=== PATIENT | female | born 1960 | race African-American/Black ===

== ENCOUNTER 2020-06-27 01:24 | Inpatient (IN) | payer OTHER ==
[2020-06-27] MEDS ORDERED: ACETAMINOPHEN 1000 MG/100 ML VIAL (NON FORMULARY) IVPB ONE (02:00)
[2020-06-27] MEDS ORDERED: ACETAMINOPHEN INJECTION 100 ML IVPB ONE (02:27)
[2020-06-27 03:02] LABS: BASO % 0.3 % (0-2.0); EOS % 0.1 % (0-4.5); HEMATOCRIT 46.7 % (32.4-45.2); HEMOGLOBIN 15.9 GM/dL (10.7-15.3); LYMPH % 22.9 % (8-40); MCH 27.9 pg (25.7-33.7); MCHC 34.1 g/dl (32.0-36.0); MEAN CELL VOLUME 81.8 fl (80-96); MEAN PLT VOLUME 9.2 fl (7.5-11.1); MONO % 6.3 % (3.8-10.2); NEUT % 70.4 % (42.8-82.8); PLATELET COUNT 210 K/MM3 (134-434); RBC 5.72 M/mm3 (3.60-5.2); RDW 15.5 % (11.6-15.6); WHITE BLOOD COUNT 14.7 K/mm3 (4.0-10.0)
[2020-06-27 03:11] LABS: INR 1.01 (0.83-1.09); PROTHROMBIN TIME (PATIENT) 11.9 SEC (9.7-13.0)
[2020-06-27] MEDS ORDERED: morphine CARPU-JECT 4 MG/1 ML DISP.SYRIN IVPUSH ONE (03:21)
[2020-06-27] MEDS ORDERED: SODIUM CHLORIDE 0.9% 500 ML INFUS.BAG IV ONE (03:24)
[2020-06-27 03:25] LABS: ALBUMIN 3.8 g/dl (3.4-5.0); CALCIUM 9.9 mg/dL (8.5-10.1); TOT PROT 8.3 g/dl (6.4-8.2)
--- NOTE | 2020-06-27 03:25 | PDOC ---
History of Present Illness - General History Source: Patient, Other (Cousin present at bedside.) Exam Limitations: No Limitations - History of Present Illness Initial Comments: 59 y/o female presenting to [facility] ER complaining of abdominal bloating and RLQ pain. Sometimes migratory to the LLQ. Progressively worsened over the past two to three months. Worse after eating or drinking. Reports occasional episodes of nonbloody and nonbilious vomiting. Last BM earlier this evening. Endorses long history of constipation requiring enemas. Denies recent diarrhea, change in stool color, or bloody bowel movements. Denies fevers, chills, chest pain, SOB, dysuira, hematuria, or vaginal discharge. Sick Contacts: No Recent Travel: No <Dajuan Marquez - Last Filed: 06/27/20 05:22> <Kayli Ziegler - Last Filed: 06/28/20 06:42> - General Chief Complaint: Pain, Acute Stated Complaint: ABD PAIN Time Seen by Provider: 06/27/20 03:09 Attending Attestation - Resident Resident Name: Dajuan Marquez - ED Attending Attestation I have performed the following: I have examined & evaluated the patient, The case was reviewed & discussed with the resident, I agree w/resident's findings & plan - HPI HPI: 06/28/20 06:41 59 y/o female presenting to [facility] ER complaining of abdominal bloating and RLQ pain. Sometimes migratory to the LLQ. Progressively worsened over the past two to three months. Worse after eating or drinking. Reports occasional episodes of nonbloody and nonbilious vomiting. Last BM earlier this evening. Endorses long history of constipation requiring enemas. Denies recent diarrhea, change in st ool color, or bloody bowel movements. - Physicial Exam PE: 06/28/20 06:42 Agree with resident exam - Medical Decision Making 06/28/20 06:41 Pt will be admitted for inpatient workup. <Kayli Ziegler - Last Filed: 06/28/20 06:42> Past History - Medical History Comment:: Medical Hx: - HTN - HLD - H/o Ovarian CA s/p oophorectomy (she thinks) at [facility] in 2003 - H/o uterine fibroidectomy many years ago in [place] - Psycho-Social/Smoking History Smoking History: Never smoked Have you smoked in the past 12 months: No Information on smoking cessation initiated: No - Substance Abuse Hx (Audit-C & DAST Scrn) How often the patient has a drink containing alcohol: Never Score: In Men: 4 or > Positive; In Women: 3 or > Positive: 0 Screen Result (Pos requires Nsg. Audit-10AR): Negative In the last yr the pt used illegal drug/Rx for NonMed reason: No Score: Yes response is considered Positive: 0 Screen Result (Positive result requires Nsg. DAST-10): Negative <Dajuan Marquez - Last Filed: 06/27/20 05:22> <Kayli Ziegler - Last Filed: 06/28/20 06:42> - Medical History Allergies/Adverse Reactions: Allergies Allergy/AdvReac Type Severity Reaction Status Date / Time No Known Drug Allergies Allergy Unverified 06/27/20 03:41 Home Medications: Ambulatory Orders Amlodipine-Atorvast 5-10 mg 5 mg PO DAILY 06/27/20 Atorvastatin Ca [Lipitor] 1 tab 06/27/20 Sennosides [Mariah-Siobhan] 8.6 mg PO DAILY 06/27/20 Review of Systems - Review of Systems Able to Perform ROS?: Yes Comments:: 10 point review of systems completed. All systems negative except as noted above. <BishopDajuan - Last Filed: 06/27/20 05:22> *Physical Exam - Vital Signs Last Vital Signs Temp Pulse Resp BP Pulse Ox 98.7 F 97 H 22 H 137/101 H 99 06/27/20 01:34 06/27/20 01:34 06/27/20 01:34 06/27/20 01:34 06/27/20 01:34 - Physical Exam Vital signs and nursing notes reviewed. Constitutional- Nontoxic adult female in no acute distress but obvious discomf ort. Found semi-fowlers on hospital bed. Answered all questions appropriately and completely. Head- Normocephalic. No obvious external signs of trauma. Eyes- Sclerae white. Neck- Supple, trachea is midline. Cardiovascular / Chest- Regular rate and regular rhythm. No murmur, rubs, clicks, or gallops. Peripheral pulses- radial pulses full. No pretibial edema. Respiratory- Breathing unlabored. Speaking in multi-word responses without pausing. Equal chest rise and fall. Clear to auscultation bilaterally. No stridor, no wheezing, no rhonchi. Gastrointestinal- abdomen is tender in the RLQ with grimace, but no rebound. No LLQ or RUQ tenderness. Globally, abdomen is distended but not taught. Large midline post-surgical scar beginning just inferior to the umbilicus. Small umbilical heria present; easily reducible. Neuro- Alert and oriented x4. Moving all four extremities spontaneously. Skin- Warm, dry, and intact. - No R or L CVA tenderness. Psych- Affect- appropriate. Mood- normal. Speech was non-labored, non- pressured. <Dajuan Marquez - Last Filed: 06/27/20 05:22> - Vital Signs Last Vital Signs Temp Pulse Resp BP Pulse Ox 97.6 F 92 H 18 134/73 97 06/28/20 06:00 06/28/20 06:00 06/28/20 06:00 06/28/20 06:00 06/28/20 06:00 <Kayli Ziegler - Last Filed: 06/28/20 06:42> Procedures - Additional Procedures Progress: Girard Sump tube placed in R nare. Gastric contested aspirated. Air sounds noted in epigastric with rapid infusion of 20cc air. Utilized Uro-Jet Lidocaine to assist with insertion. Secured at 50 with commercial clip. <Dajuan Marquez - Last Filed: 06/27/20 05:22> ED Treatment Course - LABORATORY CBC & Chemistry Diagram: 06/27/20 02:22 06/27/20 02:22 - ADDITIONAL ORDERS Additional order review: Laboratory Results 06/27/20 06/27/20 02:22 02:22 PT with INR 11.90 INR 1.01 Sodium 137 Carbon Dioxide 28 BUN 14.0 Creatinine 1.0 Est GFR (CKD-EPI)AfAm 72.42 Est GFR (CKD-EPI)NonAf 62.49 Random Glucose 152 H Calcium 9.9 AST 82 H ALT 43 Alkaline Phosphatase 98 Total Protein 8.3 H Albumin 3.8 Lipase 170 06/27/20 02:22 RBC 5.72 H MCV 81.8 MCHC 34.1 RDW 15.5 MPV 9.2 D Neutrophils % 70.4 Lymphocytes % 22.9 Monocytes % 6.3 Eosinophils % 0.1 Basophils % 0.3 - RADIOLOGY Radiology Studies Ordered: Category Date Time Status ABDOMEN & PELVIS CT WITH CONTR [CT] Stat CT Scan 06/27/20 03:22 Ordered CXRPORT [CHEST X-RAY PORTABLE*] [RAD] Stat Radiology 06/27/20 03:23 Ordered Radiograph Interpretation: CTAP w/ IV Contrast: THIS IS A PRELIMINARY REPORT FROM [facility] DATE OF SERVICE: 2020-06-27 03:59:55 IMAGES: [id number] EXAM: ABDOMEN \T\ PELVIS CT WITH CONTR HISTORY: Right lower quadrant pain. History of ovarian cancer. COMPARISON: None. FINDINGS: Lung bases are clear. The visualized cardiac chambers are normal size and configuration. Normal liver, gallbladder, pancreas, spleen, adrenal glands and kidneys. There is a small bowel obstruction with small bowel dilated to 3.5 cm. Transition point appears to be in the mid pelvis. No abscess or free air. His minimal free fluid and mesenteric edema. There is a ventral hernia which protrudes but this does not appear to be the source of obstruction. The colon is relatively collapsed There is no aortic aneurysm. There is no significant retroperitoneal lymphadenopathy. There is no evidence of appendicitis. Status post hysterectomy Urinary bladder is unremarkable. No discrete pelvic lymphadenopathy is identified. There is a 5.3 x 3 .2 X 2.4 cm right posterior paraspinal intrmuscular mass with multiple round calcifications of uncertain etiology. This appears to be an incidental finding. IMPRESSION: Small bowel obstruction with pelvic transition point, possibly due to adhesions, without abscess or free air. Right paraspinal intermuscular mass of uncertain etiology, but likely an incidental finding. Recommend comparison to prior examinations to evaluate for stability.. One or more of the following dose reduction techniques were used: automated exposure control, adjustment of the mA and/or kV according to patient size, use of iterative reconstructive technique. THIS DOCUMENT HAS BEEN ELECTRONICALLY SIGNED Deep Roper MD 06/27/2020 04:19 EST <Dajuan Marquez - Last Filed: 06/27/20 05:22> - LABORATORY CBC & Chemistry Diagram: 06/27/20 12:22 06/27/20 05:00 - ADDITIONAL ORDERS Additional order review: 06/27/20 02:22 RBC 5.72 H MCV 81.8 MCHC 34.1 RDW 15.5 MPV 9.2 D Neutrophils % 70.4 Lymphocytes % 22.9 Monocytes % 6.3 Eosinophils % 0.1 Basophils % 0.3 - Medications Given in the ED: ED Medications Discontinued Medications Generic Name Dose Route Start Last Admin Trade Name Deondre PRN Reason Stop Dose Admin Acetaminophen 1,000 mg 06/27/20 02:00 06/27/20 03:29 Ofirmev Injection - IVPB 06/27/20 02:01 1,000 mg ONCE ONE Administration Lactated Ringer's 1,000 ml in 1,000 mls @ 100 mls/hr 06/27/20 04:30 06/27/20 06:56 Lactated Ringers Solution IV 100 mls/hr ASDIR AMARIILS Administration Lactated Ringer's 1,000 ml in 1,000 mls @ 500 mls/hr 06/27/20 13:52 06/27/20 14:37 Lactated Ringers Solution IV 06/27/20 15:51 500 mls/hr ONCE STA Administration Lidocaine HCl 2 ml 06/27/20 04:42 06/27/20 05:15 Xylocaine 2% Uro-Jet SC 06/27/20 04:43 2 ml ONCE ONE Administration Morphine Sulfate 4 mg 06/27/20 03:21 06/27/20 03:43 Morphine Injection - IVPUSH 06/27/20 03:22 4 mg ONCE ONE Administration Sodium Chloride 1,000 ml 06/27/20 03:24 06/27/20 03:30 Normal Saline - IV 06/27/20 03:25 1,000 ml ONCE ONE Administration <Kayli Ziegler - Last Filed: 06/28/20 06:42> Medical Decision Making - Medical Decision Making 59 y/o female presenting with worsening RLQ pain and bloating for the past several months. H/o multiple abdominal surgeries. Afebrile. Triage vitals unremarkable for hypotension or tachycardia. Normoxic on room air. Physical exam as described above. D/D includes appendicitis, abscess, diverticulitis, acute cystitis, SBO. Pt given Morphine and NS IVFB for symptom relief. Labs remarkable for mild leukocytosis. Hyperkalemia suspected to be secondary to hemolysis. No EKG changes. Will draw repeat BMP. CTAP revealed SBO. Will admit for surgical evaluation. No indicate for emergent consultation. Will defer consultation to medicine team. Pt made NPO. NG tube placed. LR IVF started at maintenance. 27 Jun 2020 04:44 AM Telephone discussion with resident Dr. Redmond. Verbally appraised of the pts HPI, ED course, and current plan of management. Will admit pt to med/surg for attending Dr. Loco. COVID swab obtained per hospital admission protocol. Low suspicion for infection. Case discussed with ED Attending Dr. Karlie Marquez M.D., PGY3 Emergency Medicine Resident <Dajuan Marquez - Last Filed: 06/27/20 05:22> Discharge - Discharge Information Problems reviewed: Yes - Admission Yes <Dajuan Marquez - Last Filed: 06/27/20 05:22> <Kayli Ziegler - Last Filed: 06/28/20 06:42> - Discharge Information Clinical Impression/Diagnosis: SBO (small bowel obstruction) Condition: Stable
[2020-06-27] MEDS ORDERED: morphine SULFATE 4 MG/ML VIAL ONE (03:34)
[2020-06-27 03:41] LABS: BILIRUBIN,TOTAL 1.3 mg/dL (0.2-1)
[2020-06-27 03:48] LABS: POTASSIUM 6.2 mmol/L (3.5-5.1)
[2020-06-27] MEDS ORDERED: LIDOCAINE HCL 2% JELLY 10 ML CARTRIDGE PR ONE (04:42)
[2020-06-27] MEDS ORDERED: LIDOCAINE HCL 2% JELLY 10 ML CARTRIDGE ONE (04:47)
--- NOTE | 2020-06-27 05:08 | PN ---
Teaching Attending Note Name of Resident: Roger Redmond ATTENDING PHYSICIAN STATEMENT I saw and evaluated the patient. I reviewed the resident's note and discussed the case with the resident. I agree with the resident's findings and plan as documented. SUBJECTIVE: Patient is a 59 year old woman with a PMH of HTN, HLD, Ovarian cancer (s/p oophrectomy - 2003 in [facility]), Uterine fibroidectomy, Goiter, Prediabetes and Right shoulder pain due to tendinosis who presents to the ER complaining of abdominal bloating and RLQ pain. Sometimes migratory to the LLQ. Progressively worsened over the past two to three months. Did not come to the hospital because of COVID-19 fear. Pain is worse after eating or drinking. Reports occasional episodes of nonbloody and nonbilious vomiting. Last BM earlier this evening. Endorses long history of constipation requiring enemas. Denies recent diarrhea, change in stool color, or bloody bowel movements. Denies fevers, chills, chest pain, SOB, dysuria, hematuria, or abnormal vaginal discharge. Denies alcohol, tobacco or illicit drug use. No sick contacts or recent travels. Family history is unremarkable. OBJECTIVE: Alert and NGT in place Vital Signs Period Temp Pulse Resp BP Sys/Hdz Pulse Ox Last 24 Hr 98.7 F 97 22 137/101 99 HEENT: No Jaundice, eye redness or discharge, PERRLA, EOMI. Normocephalic, atraumatic. External ears are normal and hearing is grossly intact. No nasal discharge. Neck: Supple, nontender. No palpable adenopathy or thyromegaly. No JVD Chest: Good effort. Clear to auscultation and percussion. Heart: Regular. No S3, rub or murmur Abdomen: Distended, soft, diffuse tenderness most marked in the RLQ and no HSM. No rebound or guarding. Hyperactive bowel sounds. Ext: Peripheral pulses intact. No leg edema. Skin: Warm and dry. No petechiae, rash or ecchymosis. Neuro: Alert. Oriented x3. CN 2-12 grossly intact. Sensation grossly intact in all four extremities and DTR are symmetric. Psych: Appropriate mood and affect. Good insight. Home Medications Medication Instructions Recorded Amlodipine-Atorvast 5-10 mg 5 mg PO DAILY 06/27/20 Atorvastatin Ca [Lipitor] 1 tab 06/27/20 Sennosides [Mariah-Siobhan] 8.6 mg PO DAILY 06/27/20 Abnormal Lab Results 06/27/20 06/27/20 02:22 02:22 WBC 14.7 H RBC 5.72 H Hgb 15.9 H Hct 46.7 H Absolute Neuts (auto) 10.4 H Nucleated RBC % 1 H Potassium 6.2 H* Anion Gap 6 L Random Glucose 152 H Total Bilirubin 1.3 H AST 82 H Total Protein 8.3 H Current Medications Generic Name Dose Route Start Last Admin Trade Name Freq PRN Reason Stop Dose Admin Lactated Ringer's 1,000 ml in 1,000 mls @ 100 mls/hr 06/27/20 04:30 06/27/20 05:15 Lactated Ringers Solution IV 100 mls/hr ASDIR AMARILIS Administration Insulin Aspart 1 vial 06/27/20 07:00 Novolog Vial Sliding Scale - SQ ACHS AMARILIS Protocol Morphine Sulfate 2 mg 06/27/20 06:20 Morphine Injection - IVPUSH Q4H PRN PAIN LEVEL 7 - 10 ASSESSMENT AND PLAN: 1. Small bowel obstruction - Report of CT scan of abdomen/pelvis with contrast - "Small bowel obstruction with pelvic transition point, possibly due to adhesions, without abscess or free air. Right paraspinal intermuscular mass of uncertain etiology, but likely an incidental finding. Recommend comparison to prior examinations to evaluate for stability." Leukocytosis likely due to stress - awaiting urinalysis to rule out UTI. Hyperkalemia due to hemolysed sample - repeat K+ is 4.2 meq/L. CXR shows cardiomegaly with no evidence of acute lung disease. Alert her PCP to do follow-up of paraspinal mass noted on abdomen/pelvis CT. ER staff prescribed Tylenol, Morphine, Lidocaine AL (for NGT insertion), IV LR and IV NS for the patient. Will keep her NPO, give IV LR, use Morphine 2 mg IV q 4 hours PRN for pain control and consult Surgery. Viral testing for COVID-19 ordered and patient placed on airborne, droplet and contact isolation. EKG shows NSR at 87/minute and QTc 430, LAE, T wave inversion in aVL with no significant ST changes. No prior EKG available for comparison. Will continue comprehensive care for all of patients comorbid conditions. 2. Prediabetes Will check HbA1c and implement sliding scale insulin regimen. Provide comprehensive diabetes care with patient teaching and counseling about the importance of adherence to prescribed diabetes regimen, euglycemia, eye care and foot care. 3. Hypertension No ACEI/ARB in her medication list. Will add Lisinopril 20 mg q HS, restart suitable outpatient antihypertensive drugs when clinically appropriate. Subsequently, will revise regimen to ensure [id number] excellent BP control. Patient counseled on the injurious effects of uncontrolled hypertension. Nonpharmacologic measures to control hypertension like weight loss, salt restriction and exercise stressed. Importance of adherence to treatment regimen and attainment of normotension emphasized. 4. DVT prophylaxis - SCD 5. Advance directives - Full code
[2020-06-27] MEDS: LACTATED RINGERS SOLUTION 1,000 ML/1,000 ML INFUS.BAG IV SCH ×4 (05:15→23:08)
[2020-06-27 05:41] LABS: BLOOD UREA NITROGEN 11.1 mg/dL (7-18); CALCIUM 8.9 mg/dL (8.5-10.1); CREATININE 0.6 mg/dL (0.55-1.3); POTASSIUM 4.2 mmol/L (3.5-5.1)
--- NOTE | 2020-06-27 06:42 | HP ---
CHIEF COMPLAINT: Right lower quadrant pain and abdominal distension for the past 3 months. PCP: HISTORY OF PRESENT ILLNESS: Ms. Lindsey is a 59F w a h/o HTN, HLD, ovarian cancer, fibroidectomy 25 years ago in [place], and a bilateral oopherectomy at [facility] in 2003. The patient reports progressive abdominal distension and uncomfortable post prandial sensations. The patient denies ever having any significant cardiac or pulmonary history. The patient reports feeling this way for the past 3 months after every meal and drink. The patient explains she is able to pass stools only with her stool softener medications. The patient endorses the stools to be normal in color shape and consistency. The patient also reports having two episodes of NBNB vomiting of her foods yesterday. In the emergency department the patient was placed on an NG tube in the right nare draining minimal fluid likely due to a blockage in the tube. The patient denies, SOB, Chest pain, or pain with urination. Recent Travel: DENIES PAST MEDICAL HISTORY:DENIES PAST SURGICAL HISTORY:DENIES Social History: Smoking:DENIES Alcohol:DENIES Drugs: DENIES Allergies No Known Drug Allergies Allergy (Unverified 06/27/20 03:41) HOME MEDICATIONS: Home Medications Medication Instructions Recorded Amlodipine-Atorvast 5-10 mg 5 mg PO DAILY 06/27/20 Atorvastatin Ca [Lipitor] 1 tab 06/27/20 Sennosides [Mariah-Siobhan] 8.6 mg PO DAILY 06/27/20 REVIEW OF SYSTEMS CARDIOVASCULAR: Absent: chest pain, syncope, palpitations, irregular heart rate, lightheadedness, peripheral edema RESPIRATORY: Absent: cough, shortness of breath, dyspnea with exertion, orthopnea, wheezing, stridor, hemoptysis GASTROINTESTINAL:abdominal distension, nausea, vomiting, Absent: diarrhea, constipation, melena, hematochezia PSYCHIATRIC: Absent: anxiety, depression, suicidal or homicidal ideation, hallucinations. PHYSICAL EXAMINATION Vital Signs - 24 hr 06/27/20 06/27/20 01:34 05:19 Temperature 98.7 F Pulse Rate 97 H Respiratory 22 H Rate Blood Pressure 137/101 H O2 Sat by Pulse 99 99 Oximetry (%) GENERAL: Awake, alert, and fully oriented, in acute distress. LUNGS: Breath sounds equal, clear to auscultation bilaterally. No wheezes, and no crackles. No accessory muscle use. HEART: Regular rate and rhythm, normal S1 and S2 without murmur, rub or gallop. ABDOMEN: Soft, nontender, not distended, normoactive bowel sounds, no guarding, no rebound, no masses. No hepatomegaly or splenomegaly. UPPER EXTREMITIES: 2+ pulses, warm, well-perfused. No cyanosis. No clubbing. No peripheral edema. LOWER EXTREMITIES: 2+ pulses, warm, well-perfused. No calf tenderness. No peripheral edema. SKIN: Warm, dry, normal turgor, no rashes or lesions noted, normal capillary refill. Laboratory Results - last 24 hr 06/27/20 06/27/20 06/27/20 02:22 02:22 02:22 WBC 14.7 H RBC 5.72 H Hgb 15.9 H Hct 46.7 H MCV 81.8 MCH 27.9 MCHC 34.1 RDW 15.5 Plt Count 210 D MPV 9.2 D Absolute Neuts (auto) 10.4 H Neutrophils % 70.4 Lymphocytes % 22.9 Monocytes % 6.3 Eosinophils % 0.1 Basophils % 0.3 Nucleated RBC % 1 H PT with INR 11.90 INR 1.01 Sodium 137 Potassium 6.2 H* Chloride 104 Carbon Dioxide 28 Anion Gap 6 L BUN 14.0 Creatinine 1.0 Est GFR (CKD-EPI)AfAm 72.42 Est GFR (CKD-EPI)NonAf 62.49 Random Glucose 152 H Lactic Acid Calcium 9.9 Total Bilirubin 1.3 H AST 82 H ALT 43 Alkaline Phosphatase 98 Total Protein 8.3 H Albumin 3.8 Lipase 170 06/27/20 06/27/20 05:00 05:00 WBC RBC Hgb Hct MCV MCH MCHC RDW Plt Count MPV Absolute Neuts (auto) Neutrophils % Lymphocytes % Monocytes % Eosinophils % Basophils % Nucleated RBC % PT with INR INR Sodium 141 Potassium 4.2 Chloride 108 H Carbon Dioxide 24 Anion Gap 10 BUN 11.1 Creatinine 0.6 Est GFR (CKD-EPI)AfAm 117.27 Est GFR (CKD-EPI)NonAf 101.18 Random Glucose 138 H Lactic Acid 2.1 H Calcium 8.9 Total Bilirubin AST ALT Alkaline Phosphatase Total Protein Albumin Lipase ASSESSMENT/PLAN: Ms. Lindsey is a 59F w a h/o HTN, HLD, ovarian cancer, fibroidectomy 25 years ago in [facility], and a bilateral oopherectomy at [facility] in 2003. The patient reports progressive abdominal distension and uncomfortable post prandial sensations. #Small bowel obstruction in the setting of previous oopherectomy and fibroidecetomy -CT scan of abdomen/pelvis with contrast - "Small bowel obstruction with pelvic transition point, possibly due to adhesions, without abscess or free air. Right paraspinal intermuscular mass of uncertain etiology, but likely an incidental finding. Recommend comparison to prior examinations to evaluate for stability." - Morphine 2mg Q4H PRN - Surgical consultation - Dr. Wilburn - A1C - NPO - LR at 75 # Leukocytosis - WBC of 14.7 - LA 2.1 - possible suspicion for UTI - must rule out infectious cause - UA ordered - possible Sepsis unlikely - likely reactive - repeat CBC to rule out infection - repeat LA #HTN - monitor BP daily - holding antihypertensive medications until clinically indicated (STRICT NPO) #HLD - holding cholesterol medications until clinically indicated (STRICT NPO) - Need complete bowel rest #COVID-19 r/o - testing ordered - contact precautions #DVT prophylaxis - SCDs #Advance directives - Full code Visit type - Emergency Visit Emergency Visit: Yes ED Registration Date: 06/27/20 Care time: The patient presented to the Emergency Department on the above date and was hospitalized for further evaluation of their emergent condition. - New Patient This patient is new to me today: Yes Date on this admission: 06/27/20 - Critical Care Critical Care patient: No ATTENDING PHYSICIAN STATEMENT I saw and evaluated the patient. I reviewed the resident's note and discussed the case with the resident. I agree with the resident's findings and plan as documented. SUBJECTIVE: OBJECTIVE: ASSESSMENT AND PLAN:
[2020-06-27] MEDS: INSULIN SLIDING SCALE (NOVOLOG) 1 VIAL SQ SCH ×4 (07:03→22:52)
[2020-06-27 08:24] VITALS: BMI 27.7
[2020-06-27] MEDS: MORPHINE SULFATE 2 MG/ML VIAL IVPUSH PRN ×2 (08:28→14:37)
--- NOTE | 2020-06-27 10:30 | HOSP ---
Subjective - Review of Symptoms Gastrointestinal: Yes: Nausea, Abdominal Pain (generalized greater in RLQ), Other (NGT in place) Physical Examination Vital Signs: Vital Signs Temperature 99.8 F H 06/27/20 08:04 Pulse Rate 82 06/27/20 08:04 Respiratory Rate 14 06/27/20 08:04 Blood Pressure 150/78 06/27/20 08:04 O2 Sat by Pulse Oximetry (%) 99 06/27/20 08:04 Constitutional: Yes: Well Nourished, Moderate Distress Eyes: Yes: WNL, Conjunctiva Clear, EOM Intact HENT: Yes: WNL, Atraumatic, Normocephalic Neck: Yes: WNL, Supple, Trachea Midline Respiratory: Yes: WNL, Regular, CTA Bilaterally Gastrointestinal: Yes: Abdomen, Obese, Hypoactive Bowel Sounds, Tenderness, Tenderness, Rebound, Other (NGT to R nares to LCWS) ...Rectal Exam: Yes: Deferred Renal/: Yes: WNL Musculoskeletal: Yes: WNL Extremities: Yes: WNL Edema: No Peripheral Pulses WNL: Yes Peripheral Pulses: Left Radial: 2+, Right Radial: 2+, Left Doralis Pedis: 2+, Right Dorsalis Pedis: 2+, Left Femoral: 2+, Right Femoral: 2+ Integumentary: Yes: WNL Neurological: Yes: WNL, Alert, Oriented ...Motor Strength: WNL Psychiatric: Yes: WNL Labs: CBC, BMP 06/27/20 02:22 06/27/20 05:00 Hospitalist Encounter Assessment: Seen and examined in bed. Past abd surgeries now with SBO. Pending general surgery consultation. Diffuse abd pain greater to RLQ #Small bowel obstruction in the setting of previousabd surgeries -CT scan of abdomen/pelvis with contrast - "Small bowel obstruction with pelvic transition point, possibly due to adhesions, without abscess or free air. Right paraspinal intermuscular mass of uncertain etiology, but likely an incidental finding. Recommend comparison to prior examinations to evaluate for stability." - Morphine 2mg Q4H PRN for seferve pain -ofrimev for mederate pain - Surgical consultation - Dr. Wilburn to see - maintain NPO - LR @100cc/re -NGT to LCWS # Leukocytosis - WBC of 14.7 - LA 2.1, c/t trend - UA pending - likely reactive #HTN -normotensive currently - hold PO meds #HLD - hold PO meds #COVID-19 r/o - low suspicion - contact precautions #DVT prophylaxis -hep sq #Advance directives - Full code
[2020-06-27] MEDS: ACETAMINOPHEN 1000 MG/100 ML VIAL (NON FORMULARY) IVPB PRN ×2 (10:50→17:04)
[2020-06-27] MEDS: HEPARIN NA (PORCINE) 5,000 UNITS/ML 1ML VIAL SQ SCH ×2 (10:51→22:52)
[2020-06-27 10:58] LABS: EPI CELLS 3 /uL (0-25.1); HYALINE CASTS 0 /uL (0-3.1); URINE APPEARANCE CLEAR; URINE BACTERIA 23 /uL (0-1359); URINE BILIRUBIN NEGATIVE (NEGATIVE); URINE COLOR YELLOW; URINE GLUCOSE (UA) NEGATIVE (NEGATIVE); URINE KETONE NEGATIVE (NEGATIVE); URINE LEUK ESTERASE NEGATIVE (NEGATIVE); URINE NITRITE NEGATIVE (NEGATIVE); URINE PROTEIN NEGATIVE (NEGATIVE); URINE RBC 11 /uL (0-23.9); URINE UROBILINOGEN 0.2 mg/dL (0.2-1.0); URINE WBC 2 /uL (0-25.8)
[2020-06-27 13:06] LABS: BASO % 0.4 % (0-2.0); EOS % 0.5 % (0-4.5); HEMATOCRIT 45.1 % (32.4-45.2); HEMOGLOBIN 15.4 GM/dL (10.7-15.3); MCH 27.8 pg (25.7-33.7); MCHC 34.2 g/dl (32.0-36.0); MEAN CELL VOLUME 81.5 fl (80-96); MEAN PLT VOLUME 9.4 fl (7.5-11.1); MONO % 6.1 % (3.8-10.2); PLATELET COUNT 207 K/MM3 (134-434); RBC 5.54 M/mm3 (3.60-5.2); RDW 15.4 % (11.6-15.6); WHITE BLOOD COUNT 10.7 K/mm3 (4.0-10.0)
[2020-06-27] MEDS ORDERED: LACTATED RINGERS SOLUTION 1,000 ML/1,000 ML INFUS.BAG IV STA (13:52)
[2020-06-27] MEDS: ONDANSETRON 4 MG/2 ML VIAL IVPUSH SCH ×2 (15:39→22:52)
--- NOTE | 2020-06-27 19:28 | CONS ---
DATE OF CONSULTATION: 06/27/2020 REASON FOR CONSULTATION: Small-bowel obstruction. This is an emergency room consultation at the request of the emergency room physician. BRIEF HISTORY: This is a 59-year-old female with history of distant ovarian cancer surgery as well as a fibroidectomy 25 years ago. She states that she has been having difficulty eating for the past several months, however, yesterday she was doing well until she ate dinner at around 3. At that point, she had a large amount of yams as well as eggplant. Later that evening, she developed intermittent abdominal pain with nausea and vomiting. She came to the emergency room, where she had a CAT scan of her abdomen and pelvis suggestive of a mechanical small-bowel obstruction. She was admitted to the hospital, a nasogastric tube was placed, and request was made for surgical evaluation. Her past medical history is otherwise negative. PAST SURGICAL HISTORY: As stated in HPI. Social history is negative for alcohol, negative for tobacco. She has no known drug allergies. Home medications include Norvasc, Lipitor, and Senokot. REVIEW OF SYSTEMS: General: Denies fatigue or malaise. Cardiac: Denies chest pain or palpitations. Respiratory: Denies shortness of breath or wheeze. Gastrointestinal: As in HPI. Denies diarrhea, denies blood in her stool, denies recent weight loss. Genitourinary: Denies dysuria. Musculoskeletal: Denies joint pain. Psychiatric: Denies anxiety, depression, hearing voices. PHYSICAL EXAMINATION: General: This is well-developed, well-nourished 59-year-old female in no distress. Vital Signs: She is afebrile. HEENT: Her head is normocephalic. Sclerae are anicteric. Neck: Supple. Chest: Clear. Abdomen: Soft. It is mildly distended. There is no guarding, there is no tenderness. She has a large midline scar going approximately 3 inches above her umbilicus to her pubis. There is an umbilical/incisional hernia in the scar. It is reducible. Extremities: Her extremities have trace edema. On review of her laboratory, her white blood cell count is 10.7, which is down from 14.7. Her chemistries show a mildly elevated lactic acid of 2.4 at 12 o'clock today. Her COVID test is pending. On review of her imaging, she had a CAT scan of her abdomen and pelvis, which shows fecalized material with a transition point at the pelvis. There are no signs of carcinomatosis. She had an abdominal x-ray today several hours after the CAT scan that has not been officially read, however, it does not appear to show resolution of the bowel obstruction. ASSESSMENT: This is a 59-year-old female with an extensive surgical history, presents with abdominal pain, nausea and vomiting, after eating a large amount of eggplant and yams. CAT scan is consistent with a mechanical bowel obstruction with a bunch of fecalized material, which I suspect is a fiber bolus. Her white blood cell count is improving and she has a mildly elevated lactic acidosis. Clinically this is a mechanical bowel obstruction, likely from adhesions and fiber bolus. I am not concerned for bowel compromise based on her physical exam findings, based on her drop in white blood cell count, based on lack of fever, and based on the fact that she only has intermittent pain and it is not constant radiating to her back. At this point, continue nasogastric tube decompression, need to await return of COVID testing. If she does not improve with conservative management, she might require a laparotomy. Obviously, recurrence of ovarian cancer is in the differential; however, I suspect this is most likely from adhesions. The patient's daughter, who is a nurse, is with her, understands and agrees with the plan. DO WES DUMONT/[id number]
[2020-06-28] MEDS: ACETAMINOPHEN 1000 MG/100 ML VIAL (NON FORMULARY) IVPB PRN (02:29)
[2020-06-28] MEDS: ONDANSETRON 4 MG/2 ML VIAL IVPUSH SCH ×3 (06:22→23:11)
[2020-06-28] MEDS: INSULIN SLIDING SCALE (NOVOLOG) 1 VIAL SQ SCH ×4 (06:26→21:09)
[2020-06-28 07:38] LABS: HEMATOCRIT 38.9 % (32.4-45.2); HEMOGLOBIN 13.1 GM/dL (10.7-15.3); MCH 27.6 pg (25.7-33.7); MCHC 33.8 g/dl (32.0-36.0); MEAN CELL VOLUME 81.6 fl (80-96); MEAN PLT VOLUME 8.9 fl (7.5-11.1); PLATELET COUNT 173 K/MM3 (134-434); RBC 4.76 M/mm3 (3.60-5.2); RDW 15.2 % (11.6-15.6); WHITE BLOOD COUNT 9.7 K/mm3 (4.0-10.0)
[2020-06-28 08:17] LABS: POTASSIUM 3.9 mmol/L (3.5-5.1)
[2020-06-28 08:27] LABS: ALBUMIN 2.7 g/dl (3.4-5.0); BILIRUBIN,TOTAL 1.6 mg/dL (0.2-1); CALCIUM 8.4 mg/dL (8.5-10.1); CREATININE 0.6 mg/dL (0.55-1.3); MAGNESIUM 2.2 mg/dL (1.8-2.4); PHOSPHOROUS 3.7 mg/dL (2.5-4.9)
--- NOTE | 2020-06-28 08:32 | PN ---
Progress Note, Physician Chief Complaint: Patient feels improved able to pass flatus and small BM History of Present Illness: 59 years old female history of hypertension, hypercholesterolemia ovarian cancer status post soft ectomy 2003 at [place] now cancer free, goiter, prediabetic presented with abdominal pain and distention, work-up for small bowel obstruction evaluated by surgery consult recommended conservative management. Today repeat KUB shows small bowel obstruction, patient is able to pass flatus and a small bowel movement - Current Medication List Current Medications: Active Medications Acetaminophen (Ofirmev Injection -) 1,000 mg IVPB Q6H PRN PRN Reason: PAIN LEVEL 4 - 6 Stop: 06/28/20 10:19 Last Admin: 06/28/20 02:29 Dose: 1,000 mg Documented by: Heparin Sodium (Porcine) (Heparin -) 5,000 unit SQ BID [facility] Last Admin: 06/27/20 22:52 Dose: 5,000 unit Documented by: Lactated Ringer's (Lactated Ringers Solution) 1,000 ml in 1,000 mls @ 125 mls/hr IV [facility]IR [facility] Last Admin: 06/27/20 23:08 Dose: 125 mls/hr Documented by: Insulin Aspart (Novolog Vial Sliding Scale -) 1 vial SQ [facility]; Protocol Last Admin: 06/28/20 06:26 Dose: Not Given Documented by: Morphine Sulfate (Morphine Sulfate) 2 mg IVPUSH Q4H PRN PRN Reason: PAIN LEVEL 7 - 10 Last Admin: 06/27/20 14:37 Dose: 2 mg Documented by: Ondansetron HCl (Zofran Injection) 4 mg IVPUSH Q8H [facility] Last Admin: 06/28/20 06:22 Dose: 4 mg Documented by: - Objective Vital Signs: Vital Signs Temperature 97.6 F 06/28/20 06:00 Pulse Rate 92 H 06/28/20 06:00 Respiratory Rate 18 06/28/20 06:00 Blood Pressure 134/73 06/28/20 06:00 O2 Sat by Pulse Oximetry (%) 97 06/28/20 06:00 General: Middle-aged female comfortable, not in distress HEENT: NG tube in place: Mucous membranes moist, no anemia, no jaundice, PERRLA, no nystagmus Neck: No JVD, supple, no bruit, thyroid palpably normal, normal carotid pul sations. Chest: Nontender, clear to auscultation bilaterally CVS: S1-S2 regular no murmur/gallop/rub Abdomen: Nontender mild distended, soft, bowel sounds present. Extremities: No edema., No Calf tenderness, pulses present BAGGAGE SCREENER: AO X3 , no gross motor sensory deficit Labs: CBC, BMP 06/28/20 06:50 06/28/20 06:50 INR, PTT INR 1.01 (0.83-1.09) 06/27/20 02:22 - ....Imaging Chest X-ray: Report Reviewed (BERNABE Mccann 01/31/2020: Small bowel obstruction NG tube in place.) Cat Scan: Report Reviewed (Abdomen: Small bowel obstruction with fecal load) Problem List - Problems (1) SBO (small bowel obstruction) Assessment/Plan: Most likely due to postoperative stricture, evaluated by surgery recommended conservative management at present patient is improving on current management. N.p.o. on NG tube, will switch to Clinimix Problems reviewed: Yes Code(s): K56.609 - UNSP INTESTNL OBST, UNSP TO PARTIAL VERSUS COMPLETE OBST (2) Hypertension Assessment/Plan: Well-controlled off medication Code(s): I10 - ESSENTIAL (PRIMARY) HYPERTENSION (3) Ovarian cancer Assessment/Plan: Ovarian cancer in the past status post nephrectomy 2004 at present cancer free as per patient Problems reviewed: Yes Code(s): C56.9 - MALIGNANT NEOPLASM OF UNSPECIFIED OVARY
[2020-06-28 08:38] LABS: TOT PROT 5.6 g/dl (6.4-8.2)
[2020-06-28] MEDS: LACTATED RINGERS SOLUTION 1,000 ML/1,000 ML INFUS.BAG IV SCH (08:57)
[2020-06-28] MEDS: MORPHINE SULFATE 2 MG/ML VIAL IVPUSH PRN ×2 (08:58→19:02)
[2020-06-28] MEDS: HEPARIN NA (PORCINE) 5,000 UNITS/ML 1ML VIAL SQ SCH ×2 (09:03→21:09)
--- NOTE | 2020-06-28 09:42 | PN ---
Progress Note (short form) - Note Progress Note: Surg: Pt without any BM or flatus. No nausea or emesis. Vital Signs Period Temp Pulse Resp BP Sys/Hdz Pulse Ox Last 24 Hr 97.6 F-100.2 F 90-104 18-22 131-163/62-86 93-98 NGT; [id number] brown in canister GEN: Alert and in NAD ABD: soft, non-distended, reducible umbilical hernia. RLQ tenderness with palpation. No guarding or rebound CBC, BMP 06/28/20 06:50 06/28/20 06:50 Laboratory Tests 06/27/20 06/28/20 12:22 06:50 Lactic Acid 2.4 H* Phosphorus 3.7 Magnesium 2.2 AXR: distended Sm bowel loops with small bowel possible partial Sm bowel obstruction A/P: 59 yo female with a Pmhx of ovarian cancer/fibroid surgery now with evidence of SBO This am, NGT was found to be secured at 54cm-air heard with auscultation over the stomach. Advanced tube to 64cm and confirmed placement with air ausculatation. Repeat ABD ordered portable due to COVID pending status. low grade temp with no leukocytosis Overall pt not requiring multiple doses of IV pain medications to help relieve pain, 2 mg morphine given this am. D/w Dr. Wilburn and recommend to continue IV hydration, repeat AXR today and lactic acid Serial abd exams
--- NOTE | 2020-06-28 10:03 | EKG ---
Test Reason : Blood Pressure : / mmHG Vent. Rate : 087 BPM Atrial Rate : 087 BPM P-R Int : 146 ms QRS Dur : 082 ms QT Int : 358 ms P-R-T Axes : 060 026 056 degrees QTc Int : 430 ms NORMAL SINUS RHYTHM POSSIBLE LEFT ATRIAL ENLARGEMENT NONSPECIFIC T WAVE ABNORMALITY ABNORMAL ECG NO PREVIOUS ECGS AVAILABLE Confirmed by Thais Price ([id number]) on 06/28/2020 10:02:54 AM Referred By: Confirmed By:Thais Price
[2020-06-28] MEDS: AMINO ACIDS 4.25%/D5W 1,000 ML IV SCH (15:09)
[2020-06-28] MEDS ORDERED: ACETAMINOPHEN 325 MG TABLET (FP) PO PRN (17:54)
[2020-06-28] MEDS ORDERED: ACETAMINOPHEN 650 MG SUPP.RECT PR PRN (19:52)
[2020-06-28] MEDS ORDERED: INSULIN (NOVOLOG) ASPART 100 UNITS/ML 10ML VIAL ONE (21:00)
[2020-06-28] MEDS: FAMOTIDINE 20 MG/50 ML IVPB 20 MG/50 ML MG IVPB SCH (21:09)
[2020-06-29] MEDS: INSULIN SLIDING SCALE (NOVOLOG) 1 VIAL SQ SCH ×4 (06:07→21:53)
[2020-06-29] MEDS: AMINO ACIDS 4.25%/D5W 1,000 ML IV SCH ×2 (06:07→20:58)
[2020-06-29] MEDS: ONDANSETRON 4 MG/2 ML VIAL IVPUSH SCH ×3 (06:09→22:00)
[2020-06-29 08:04] LABS: BASO % 0.3 % (0-2.0); EOS % 1.7 % (0-4.5); HEMATOCRIT 41.8 % (32.4-45.2); HEMOGLOBIN 14.2 GM/dL (10.7-15.3); LYMPH % 26.7 % (8-40); MCH 27.8 pg (25.7-33.7); MCHC 33.9 g/dl (32.0-36.0); MEAN PLT VOLUME 9.6 fl (7.5-11.1); MONO % 5.7 % (3.8-10.2); NEUT % 65.6 % (42.8-82.8); PLATELET COUNT 170 K/MM3 (134-434); RDW 15.5 % (11.6-15.6); WHITE BLOOD COUNT 10.2 K/mm3 (4.0-10.0)
--- NOTE | 2020-06-29 08:22 | PN ---
Progress Note (short form) - Note Progress Note: Pt seen and examined. No issues overnight. Reports she had a small bowel movement yesterday. NPO, NGT in place. No n/v overnight. Denies cp/sob/n/v/d. Vital Signs Temp 99.2 F 06/29/20 07:15 Pulse 96 H 06/29/20 07:15 Resp 18 06/29/20 07:15 BP 135/76 06/29/20 07:15 Pulse Ox 95 06/29/20 07:15 Intake & Output 06/28/20 06/28/20 06/29/20 11:59 23:59 11:59 Intake Total 1600 1486 924 Output Total 50 200 50 Balance 1550 1286 874 Intake: IV 1500 1336 924 Clinimix 336 924 LACTATED RINGERS SOLUTION 1500 1000 1,000 ml In 1,000 ml @ 125 mls/hr IV ASDIR [facility] Rx#:[id number] IVPB 100 150 Oral 0 Output: Drainage 50 200 50 NG TUBE 50 200 50 Other: Voiding Method Toilet Toilet Toilet # Unmeasured Voids Void 1 2 2 Bowel Movement No No No # Bowel Movements 1 CBC, BMP 06/29/20 06:55 Gen: awake, alert, nad Resp: unlabored on ra Abdo: soft, minimally distended, +diffuse ttp, no rebound or guarding. Hypoactive bowel sounds. NGT in place with bilious output noted in reservoir A/P: 59 y/o F w/ PMHx HTN, HLD, ovarian cancer, fibroidectomy 25 years ago in [place], and a bilateral oopherectomy at [place] in 2003 a/w sbo low grade fevers (tmax 100F) wbc trending up (10.2k) ngt output 50ml overnight axr ordered for this am-> reviewed with attending air in colon, NGT removed, keep NPO will evaluate in AM for trial of clear liquids d/w attending Dr Wilburn
[2020-06-29 08:49] LABS: BLOOD UREA NITROGEN 12.2 mg/dL (7-18); CALCIUM 8.7 mg/dL (8.5-10.1); CREATININE 0.6 mg/dL (0.55-1.3); POTASSIUM 3.5 mmol/L (3.5-5.1)
[2020-06-29] MEDS: HEPARIN NA (PORCINE) 5,000 UNITS/ML 1ML VIAL SQ SCH ×2 (09:32→21:53)
[2020-06-29] MEDS: FAMOTIDINE 20 MG/50 ML IVPB 20 MG/50 ML MG IVPB SCH ×2 (09:33→21:54)
[2020-06-29] MEDS ORDERED: MINERAL OIL/PETROLAT/WATER TOPICAL CREAM 454 GM JAR TP PRN (12:36)
--- NOTE | 2020-06-29 12:37 | PN ---
Physical Exam: SUBJECTIVE: Patient seen and examined at the bedside. denies pain, tenderness on light palpation of the abdomen. denies any other symptoms. OBJECTIVE: Patient is a 59 years old female history of hypertension, hypercholesterolemia, ovarian cancer status post surgery 2004 at [place], Goiter, prediabetic. Patient presented to the ED on 06/27/2020 with abdominal pain and distention and was found to have an SBO. Has NGT in place. For abdominal xray today. imaging: abdominal pelvis CT 06/27/2020: (1) left lower lung, incompletely included 9mm pulmonary nodule. (2) distal SBO (3) small umbilical hernia with herniating bowels, without evidence of incarceration. (4) s/p hysterectomy (5) right posterior soft tissue mass line densities with small calcifications seen on t11- t12 level. abdominal xray 06/29/2020: slight improvement from prior study Vital Signs Period Temp Pulse Resp BP Sys/Hdz Pulse Ox Last 24 Hr 98.6 F-100 F 85-96 16-18 133-160/72-89 90-98 GENERAL: The patient is awake, alert, and fully oriented, in no acute distress. HEAD: Normal with no signs of trauma. EYES: PERRL, extraocular movements intact, sclera anicteric, conjunctiva clear. No ptosis. ENT: Ears normal, nares patent, oropharynx clear without exudates, moist mucous membranes. NECK: Trachea midline, full range of motion, supple. LUNGS: Breath sounds equal, clear to auscultation bilaterally, no wheezes HEART: Regular rate and rhythm ABDOMEN: Soft, mildly tender, hypoactive bowel sounds, non distended. on NGT tube. for abd xray today EXTREMITIES: no edema. NEUROLOGICAL: Normal speech, gait not observed. PSYCH: Normal mood, normal affect. SKIN: dry Laboratory Results - last 24 hr 06/28/20 06/28/20 06/29/20 16:55 21:07 06:06 WBC RBC Hgb Hct MCV MCH MCHC RDW Plt Count MPV Absolute Neuts (auto) Neutrophils % Lymphocytes % Monocytes % Eosinophils % Basophils % Nucleated RBC % Sodium Potassium Chloride Carbon Dioxide Anion Gap BUN Creatinine Est GFR (CKD-EPI)AfAm Est GFR (CKD-EPI)NonAf POC Glucometer 116 105 112 Random Glucose Calcium 06/29/20 06/29/20 06/29/20 06:55 06:55 11:22 WBC 10.2 H RBC 5.10 Hgb 14.2 Hct 41.8 MCV 82.0 MCH 27.8 MCHC 33.9 RDW 15.5 Plt Count 170 MPV 9.6 Absolute Neuts (auto) 6.7 Neutrophils % 65.6 Lymphocytes % 26.7 Monocytes % 5.7 Eosinophils % 1.7 D Basophils % 0.3 Nucleated RBC % 0 Sodium 142 Potassium 3.5 Chloride 107 Carbon Dioxide 22 Anion Gap 13 BUN 12.2 Creatinine 0.6 Est GFR (CKD-EPI)AfAm 117.27 Est GFR (CKD-EPI)NonAf 101.18 POC Glucometer 97 Random Glucose 108 H Calcium 8.7 Active Medications Generic Name Dose Route Start Last Admin Trade Name Freq PRN Reason Stop Dose Admin Acetaminophen 650 mg 06/28/20 19:52 Tylenol Suppository - ND Q6H PRN FEVER Heparin Sodium (Porcine) 5,000 unit 06/27/20 10:00 06/29/20 09:32 Heparin - SQ 5,000 unit BID [facility] Administration Amino Acids 1,000 mls @ 84 mls/hr 06/28/20 15:00 06/29/20 06:07 Clinimix - IV 84 mls/hr Q12H [facility] Administration Famotidine/Sodium Chloride 20 mg in 50 mls @ 100 mls/hr 06/28/20 22:00 06/29/20 09:33 Pepcid 20 Mg Premixed Ivpb - IVPB 100 mls/hr BID [facility] Administration Insulin Aspart 1 vial 06/27/20 07:00 06/29/20 11:25 Novolog Vial Sliding Scale - SQ Not Given ACHS [facility] Protocol Morphine Sulfate 2 mg 06/27/20 06:20 06/28/20 19:02 Morphine Sulfate IVPUSH 2 mg Q4H PRN Administration PAIN LEVEL 7 - 10 Multi-Ingredient Lotion 1 applic 06/29/20 12:45 Eucerin (Large Jar) - TP BID [facility] Ondansetron HCl 4 mg 06/27/20 15:00 06/29/20 06:09 Zofran Injection IVPUSH 4 mg Q8H [facility] Administration ASSESSMENT/PLAN: Problem List - Problems (1) Pulmonary nodule 1 cm or greater in diameter Assessment/Plan: pulmonary nodule seen on abd/ct scan, incidental finding. per report, left lower lung, incompletely included 9mm pulmonary nodule. pulmonary consulted to further evaluate Code(s): R91.1 - SOLITARY PULMONARY NODULE (2) Hypertension Assessment/Plan: above goal, but amlodopine held 2/ to NPO status due to SBO. NGT removed today. restart cardiac meds tomorrow if able to tolerate PO intake Code(s): I10 - ESSENTIAL (PRIMARY) HYPERTENSION (3) Ovarian cancer Assessment/Plan: will need outpatient follow up. abd/ct reviewed Code(s): C56.9 - MALIGNANT NEOPLASM OF UNSPECIFIED OVARY (4) SBO (small bowel obstruction) Assessment/Plan: per abdominal xray dated 06/29/2020. improvement of SBO. NGT removed today surgery following patient states she had a small bm yesterday and is passing flatus abdomen soft and non distended Code(s): K56.609 - UNSP INTESTNL OBST, UNSP TO PARTIAL VERSUS COMPLETE OBST (5) DVT prophylaxis Assessment/Plan: heparin tid Code(s): Z29.9 - ENCOUNTER FOR PROPHYLACTIC MEASURES, UNSPECIFIED Visit type - Emergency Visit Emergency Visit: Yes ED Registration Date: 06/27/20 Care time: The patient presented to the Emergency Department on the above date and was hospitalized for further evaluation of their emergent condition. - New Patient This patient is new to me today: Yes Date on this admission: 06/29/20 - Critical Care Critical Care patient: No - Discharge Referral Referred to [facility] Med P.C.: No
[2020-06-29] MEDS: MINERAL OIL/PETROLAT/WATER TOPICAL CREAM 454 GM JAR TP SCH ×2 (15:56→21:53)
[2020-06-30] MEDS: AMINO ACIDS 4.25%/D5W 1,000 ML IV SCH (03:06)
[2020-06-30] MEDS: INSULIN SLIDING SCALE (NOVOLOG) 1 VIAL SQ SCH ×2 (06:07→11:42)
[2020-06-30] MEDS: ONDANSETRON 4 MG/2 ML VIAL IVPUSH SCH ×3 (06:07→22:13)
[2020-06-30 08:37] LABS: BASO % 0.4 % (0-2.0); HEMATOCRIT 43.8 % (32.4-45.2); HEMOGLOBIN 14.6 GM/dL (10.7-15.3); LYMPH % 25.4 % (8-40); MCH 27.3 pg (25.7-33.7); MCHC 33.3 g/dl (32.0-36.0); MEAN CELL VOLUME 82.1 fl (80-96); MEAN PLT VOLUME 9.5 fl (7.5-11.1); MONO % 6.6 % (3.8-10.2); NEUT % 66.6 % (42.8-82.8); PLATELET COUNT 175 K/MM3 (134-434); RBC 5.34 M/mm3 (3.60-5.2); RDW 15.3 % (11.6-15.6); WHITE BLOOD COUNT 8.9 K/mm3 (4.0-10.0)
--- NOTE | 2020-06-30 09:22 | PN ---
Progress Note (short form) - Note Progress Note: Pt seen and examined. No issues overnight, ngt removed yesterday afternoon. No n/v overnight, no bms, passing flatus. Denies cp/sob/n/v/d. Vital Signs Temp 98.2 F 06/30/20 07:02 Pulse 84 06/30/20 07:02 Resp 18 06/30/20 07:02 BP 132/67 06/30/20 07:02 Pulse Ox 97 06/30/20 07:02 Intake & Output 06/29/20 06/29/20 06/30/20 11:59 23:59 11:59 Intake Total 924 1318 974 Output Total 50 50 Balance 874 1268 974 Intake: IV 924 1218 924 Clinimix 924 1218 924 IVPB 100 50 Oral 0 Output: Drainage 50 50 NG TUBE 50 50 Other: Voiding Method Toilet Toilet Toilet # Unmeasured Voids Void 2 1 2 Bowel Movement No No No CBC, BMP 06/30/20 07:51 Gen: awake, alert, nad Resp: unlabored on ra Abdo: soft, minimally distended, +diffuse ttp, no rebound or guarding. Hypoactive bowel sounds. A/P: 59 y/o F w/ PMHx HTN, HLD, ovarian cancer, fibroidectomy 25 years ago in [place], and a bilateral oopherectomy at [place] in 2003 a/w sbo no fevers overnight no leukocytosis ngt removed in afternoon (06/29) clears ordered for this am will f/u in [id number] this afternoon, pt tolerating clear liquids, no change in abdo pain, no n/v continue clear liquids will continue to follow d/w attending Dr Wilburn
[2020-06-30 09:36] LABS: CALCIUM 9.2 mg/dL (8.5-10.1); CREATININE 0.7 mg/dL (0.55-1.3); MAGNESIUM 2.2 mg/dL (1.8-2.4); POTASSIUM 3.8 mmol/L (3.5-5.1); TOT PROT 6.7 g/dl (6.4-8.2)
[2020-06-30] MEDS: MINERAL OIL/PETROLAT/WATER TOPICAL CREAM 454 GM JAR TP SCH ×2 (10:45→22:12)
[2020-06-30] MEDS: HEPARIN NA (PORCINE) 5,000 UNITS/ML 1ML VIAL SQ SCH ×2 (10:45→22:12)
[2020-06-30] MEDS: FAMOTIDINE 20 MG/50 ML IVPB 20 MG/50 ML MG IVPB SCH ×2 (10:46→22:12)
[2020-06-30] MEDS ORDERED: ATORVASTATIN PO SCH (11:15)
[2020-06-30] MEDS ORDERED: AMLODIPINE PO SCH (11:15)
--- NOTE | 2020-06-30 11:21 | PN ---
Physical Exam: SUBJECTIVE: Patient seen and examined. denies any nausea or vomiting. feels better. drank clear broth this morning and slowly drinking apple juice. discussed findings of pulmonary nodule with her. OBJECTIVE: abdomen soft, mildly distended. tolerating clears ngt removed by surgery on 06/29/2020 encouraged patient to ambulate ------ Patient is a 59 years old female history of hypertension, hypercholesterolemia, ovarian cancer status post surgery 2004 at [place], Goiter, prediabetic. Patient presented to the ED on 06/27/2020 with abdominal pain and distention and was found to have an SBO. Has NGT in place. For abdominal xray today. imaging: abdominal pelvis CT 06/27/2020: (1) left lower lung, incompletely included 9mm pulmonary nodule. (2) distal SBO (3) small umbilical hernia with herniating bowels, without evidence of incarceration. (4) s/p hysterectomy (5) right posterior soft tissue mass line densities with small calcifications seen on t11- t12 level. abdominal xray 06/29/2020: slight improvement from prior study Period Temp Pulse Resp BP Sys/Hdz Pulse Ox Last 24 Hr 98.1 F-98.2 F 77-87 16-18 129-151/63-91 97-98 GENERAL: The patient is awake, alert, and fully oriented, in no acute distress. HEAD: Normal with no signs of trauma. EYES: PERRL, extraocular movements intact, sclera anicteric, conjunctiva clear. No ptosis. ENT: Ears normal, nares patent, oropharynx clear without exudates, moist mucous membranes. NECK: Trachea midline, full range of motion, supple. LUNGS: Breath sounds equal, clear to auscultation bilaterally, no wheezes HEART: Regular rate and rhythm ABDOMEN: Soft, mildly tender, hypoactive bowel sounds, mildy distended. NGT tube removed 06/29/2020. tolerating clears EXTREMITIES: no edema. NEUROLOGICAL: Normal speech, gait not observed. PSYCH: Normal mood, normal affect. SKIN: dry Laboratory Results - last 24 hr 06/29/20 06/29/20 06/29/20 11:22 17:55 21:51 WBC RBC Hgb Hct MCV MCH MCHC RDW Plt Count MPV Absolute Neuts (auto) Neutrophils % Lymphocytes % Monocytes % Eosinophils % Basophils % Nucleated RBC % Sodium Potassium Chloride Carbon Dioxide Anion Gap BUN Creatinine Est GFR (CKD-EPI)AfAm Est GFR (CKD-EPI)NonAf POC Glucometer 97 104 121 Random Glucose Calcium Magnesium Total Bilirubin AST ALT Alkaline Phosphatase Total Protein Albumin 06/30/20 06/30/20 06/30/20 06:05 07:51 07:51 WBC 8.9 RBC 5.34 H Hgb 14.6 Hct 43.8 MCV 82.1 MCH 27.3 MCHC 33.3 RDW 15.3 Plt Count 175 MPV 9.5 Absolute Neuts (auto) 5.9 Neutrophils % 66.6 Lymphocytes % 25.4 Monocytes % 6.6 Eosinophils % 1.0 Basophils % 0.4 Nucleated RBC % 0 Sodium 140 Potassium 3.8 Chloride 105 Carbon Dioxide 27 Anion Gap 9 BUN 16.0 Creatinine 0.7 Est GFR (CKD-EPI)AfAm 111.47 Est GFR (CKD-EPI)NonAf 96.18 POC Glucometer 135 Random Glucose 97 Calcium 9.2 Magnesium 2.2 Total Bilirubin 1.0 AST 28 ALT 24 Alkaline Phosphatase 68 Total Protein 6.7 Albumin 3.0 L Active Medications Generic Name Dose Route Start Last Admin Trade Name Freq PRN Reason Stop Dose Admin Acetaminophen 650 mg 06/28/20 19:52 Tylenol Suppository - MT Q6H PRN FEVER Amlodipine Besylate 5 mg 06/30/20 11:15 Norvasc - PO DAILY [facility] Atorvastatin Calcium 10 mg 06/30/20 22:00 Lipitor - PO HS [facility] Heparin Sodium (Porcine) 5,000 unit 06/27/20 10:00 06/30/20 10:45 Heparin - SQ 5,000 unit BID [facility] Administration Amino Acids 1,000 mls @ 84 mls/hr 06/28/20 15:00 06/30/20 03:06 Clinimix - IV Not Given Q12H [facility] Famotidine/Sodium Chloride 20 mg in 50 mls @ 100 mls/hr 06/28/20 22:00 06/30/20 10:46 Pepcid 20 Mg Premixed Ivpb - IVPB 100 mls/hr BID [facility] Administration Insulin Aspart 1 vial 06/27/20 07:00 06/30/20 06:07 Novolog Vial Sliding Scale - SQ Not Given ACHS [facility] Protocol Morphine Sulfate 2 mg 06/27/20 06:20 06/28/20 19:02 Morphine Sulfate IVPUSH 2 mg Q4H PRN Administration PAIN LEVEL 7 - 10 Multi-Ingredient Lotion 1 applic 06/29/20 12:45 06/30/20 10:45 Eucerin (Large Jar) - TP 1 applic BID [facility] Administration Ondansetron HCl 4 mg 06/27/20 15:00 06/30/20 06:07 Zofran Injection IVPUSH 4 mg Q8H [facility] Administration ASSESSMENT/PLAN: Problem List - Problems (1) SBO (small bowel obstruction) Assessment/Plan: per abdominal xray dated 06/29/2020. improvement of SBO. NGT removed 06/29/2020 and now on clears. abdomen soft and non distended. no BM yet. but passing flatus. Code(s): K56.609 - UNSP INTESTNL OBST, UNSP TO PARTIAL VERSUS COMPLETE OBST (2) Lactic acidosis Assessment/Plan: now resolved. likely in the setting of acute SBO lactic acid on admission @ 2.1, trended upward to 2.4, now resolved. Code(s): E87.2 - ACIDOSIS (3) Pulmonary nodule 1 cm or greater in diameter Assessment/Plan: pulmonary nodule seen on abd/ct scan, incidental finding. per report, left lower lung, incompletely included 9mm pulmonary nodule. pulmonary consulted and CT chest ordered to further evaluate Code(s): R91.1 - SOLITARY PULMONARY NODULE (4) Hypertension Assessment/Plan: NGT removed and she is now on clears. amlodopine restarted. Code(s): I10 - ESSENTIAL (PRIMARY) HYPERTENSION (5) Ovarian cancer Assessment/Plan: will need outpatient follow up. abd/ct reviewed Code(s): C56.9 - MALIGNANT NEOPLASM OF UNSPECIFIED OVARY (6) DVT prophylaxis Assessment/Plan: heparin tid Code(s): Z29.9 - ENCOUNTER FOR PROPHYLACTIC MEASURES, UNSPECIFIED Visit type - Emergency Visit Emergency Visit: Yes ED Registration Date: 06/27/20 Care time: The patient presented to the Emergency Department on the above date and was hospitalized for further evaluation of their emergent condition. - New Patient This patient is new to me today: No - Critical Care Critical Care patient: No - Discharge Referral Referred to [facility] Med P.C.: No
[2020-06-30] MEDS: amLODIPine BESYLATE 5 MG TABLET (FP) PO SCH (11:49)
--- NOTE | 2020-06-30 12:55 | PN ---
Progress Note (short form) - Note Progress Note: PULMONARY CONSULTATION DICTATED 06/30/20 IMP SBO H/O OVARIAN CA S/P SURGERY 2004 H/O FIBROIDECTOMY 25yrs AGO LLL NODULE HTN HLD PRE-DIABETES PLAN CHEST CT MONITOR LYTES W/U PER SURGERY DR LORD Problem List - Problems (1) HLD (hyperlipidemia) Code(s): E78.5 - HYPERLIPIDEMIA, UNSPECIFIED (2) DVT prophylaxis Code(s): Z29.9 - ENCOUNTER FOR PROPHYLACTIC MEASURES, UNSPECIFIED (3) Hypertension Code(s): I10 - ESSENTIAL (PRIMARY) HYPERTENSION (4) Ovarian cancer Code(s): C56.9 - MALIGNANT NEOPLASM OF UNSPECIFIED OVARY (5) Pulmonary nodule 1 cm or greater in diameter Code(s): R91.1 - SOLITARY PULMONARY NODULE (6) SBO (small bowel obstruction) Code(s): K56.609 - UNSP INTESTNL OBST, UNSP TO PARTIAL VERSUS COMPLETE OBST
[2020-06-30] MEDS ORDERED: ATORVASTATIN CA 10 MG TABLET (FP) PO SCH (22:00)
[2020-06-30] MEDS ORDERED: PT OWN MED DRAWER 7, Y5N ONE (22:10)
[2020-07-01] MEDS: ONDANSETRON 4 MG/2 ML VIAL IVPUSH SCH ×2 (06:02→14:12)
[2020-07-01 09:24] LABS: BASO % 0.6 % (0-2.0); EOS % 1.1 % (0-4.5); HEMATOCRIT 43.5 % (32.4-45.2); HEMOGLOBIN 14.8 GM/dL (10.7-15.3); LYMPH % 33.4 % (8-40); MCH 27.6 pg (25.7-33.7); MCHC 33.9 g/dl (32.0-36.0); MEAN CELL VOLUME 81.4 fl (80-96); MEAN PLT VOLUME 10.2 fl (7.5-11.1); MONO % 5.8 % (3.8-10.2); NEUT % 59.1 % (42.8-82.8); PLATELET COUNT 212 K/MM3 (134-434); RBC 5.35 M/mm3 (3.60-5.2); RDW 15.4 % (11.6-15.6); WHITE BLOOD COUNT 7.2 K/mm3 (4.0-10.0)
[2020-07-01 09:38] LABS: ALBUMIN 3.4 g/dl (3.4-5.0); BLOOD UREA NITROGEN 10.3 mg/dL (7-18); CALCIUM 9.6 mg/dL (8.5-10.1); CREATININE 0.7 mg/dL (0.55-1.3); MAGNESIUM 2.3 mg/dL (1.8-2.4); POTASSIUM 4.2 mmol/L (3.5-5.1); TOT PROT 7.3 g/dl (6.4-8.2)
--- NOTE | 2020-07-01 09:45 | PN ---
Progress Note (short form) - Note Progress Note: SURGERY Pt seen and examined. No issues overnight, pt tolerating clears. No n/v overnight, no bms, passing flatus. Denies cp/sob/n/v/d. Last Vital Signs Temp Pulse Resp BP Pulse Ox 98.0 F 83 18 136/56 L 95 07/01/20 06:00 07/01/20 06:00 07/01/20 06:00 07/01/20 06:00 07/01/20 06:00 CBC, BMP 07/01/20 08:05 07/01/20 08:05 Gen: awake, alert, nad Resp: unlabored on ra Abdo: soft, minimally distended, +diffuse mild tenderness, no rebound or guar ding. A/P: 59 y/o F w/ PMHx HTN, HLD, ovarian cancer, fibroidectomy 25 years ago in [place], and a bilateral oopherectomy at [place] in 2003 a/w sbo no fevers overnight no leukocytosis ngt removed in afternoon (06/29) full liquids ordered for this am pt cleared from surgery standpoint, should follow up with Dr. Wilburn as outpatient in 1 week. Pt should continue full liquids for 1 week, and follow up with her oncologist about lung nodule. d/w attending Dr Wilburn
--- NOTE | 2020-07-01 10:10 | PN ---
Progress Note, Physician History of Present Illness: pulmonary alert,comfortable,feeling better,tolerating po - Current Medication List Current Medications: Active Medications Acetaminophen (Tylenol Suppository -) 650 mg HI Q6H PRN PRN Reason: FEVER Amlodipine Besylate (Norvasc -) 5 mg PO DAILY [facility] Last Admin: 06/30/20 11:49 Dose: 5 mg Documented by: Atorvastatin Calcium (Lipitor -) 10 mg PO HS [facility] Last Admin: 06/30/20 22:12 Dose: 10 mg Documented by: Heparin Sodium (Porcine) (Heparin -) 5,000 unit SQ BID [facility] Last Admin: 06/30/20 22:12 Dose: 5,000 unit Documented by: Famotidine/Sodium Chloride (Pepcid 20 Mg Premixed Ivpb -) 20 mg in 50 mls @ 100 mls/hr IVPB BID [facility] Last Admin: 06/30/20 22:12 Dose: 100 mls/hr Documented by: Morphine Sulfate (Morphine Sulfate) 2 mg IVPUSH Q4H PRN PRN Reason: PAIN LEVEL 7 - 10 Last Admin: 06/28/20 19:02 Dose: 2 mg Documented by: Multi-Ingredient Lotion (Eucerin (Large Jar) -) 1 applic TP BID [facility] Last Admin: 06/30/20 22:12 Dose: 1 applic Documented by: Ondansetron HCl (Zofran Injection) 4 mg IVPUSH Q8H [facility] Last Admin: 07/01/20 06:02 Dose: Not Given Documented by: - Objective Vital Signs: Vital Signs Temperature 98.0 F 07/01/20 06:00 Pulse Rate 83 07/01/20 06:00 Respiratory Rate 18 07/01/20 06:00 Blood Pressure 136/56 L 07/01/20 06:00 O2 Sat by Pulse Oximetry (%) 95 07/01/20 06:00 Constitutional: Yes: Well Nourished, Calm Eyes: Yes: WNL HENT: Yes: WNL Neck: Yes: WNL Cardiovascular: Yes: Regular Rate and Rhythm, S1, S2 Respiratory: Yes: CTA Bilaterally Gastrointestinal: Yes: Soft, Distention, Tenderness Extremities: Yes: WNL Edema: No Labs: CBC, BMP 07/01/20 08:05 07/01/20 08:05 INR, PTT INR 1.01 (0.83-1.09) 06/27/20 02:22 - ....Imaging Cat Scan: Report Reviewed, Image Reviewed (anna,lll nodule) Problem List - Problems (1) HLD (hyperlipidemia) Code(s): E78.5 - HYPERLIPIDEMIA, UNSPECIFIED (2) DVT prophylaxis Code(s): Z29.9 - ENCOUNTER FOR PROPHYLACTIC MEASURES, UNSPECIFIED (3) Hypertension Code(s): I10 - ESSENTIAL (PRIMARY) HYPERTENSION (4) Ovarian cancer Code(s): C56.9 - MALIGNANT NEOPLASM OF UNSPECIFIED OVARY (5) Pulmonary nodule 1 cm or greater in diameter Code(s): R91.1 - SOLITARY PULMONARY NODULE (6) SBO (small bowel obstruction) Code(s): K56.609 - UNSP INTESTNL OBST, UNSP TO PARTIAL VERSUS COMPLETE OBST Assessment/Plan IMP SBO RESOLVED H/O OVARIAN CA S/P SURGERY 2004 H/O FIBROIDECTOMY 25yrs AGO LLL,ANNA NODULE HTN HLD PRE-DIABETES PLAN MONITOR LYTES W/U PER SURGERY PET SCAN OUTPATIENT DR LORD Problem List - Problems (1) HLD (hyperlipidemia) Code(s): E78.5 - HYPERLIPIDEMIA, UNSPECIFIED (2) DVT prophylaxis Code(s): Z29.9 - ENCOUNTER FOR PROPHYLACTIC MEASURES, UNSPECIFIED (3) Hypertension Code(s): I10 - ESSENTIAL (PRIMARY) HYPERTENSION (4) Ovarian cancer Code(s): C56.9 - MALIGNANT NEOPLASM OF UNSPECIFIED OVARY (5) Pulmonary nodule 1 cm or greater in diameter Code(s): R91.1 - SOLITARY PULMONARY NODULE (6) SBO (small bowel obstruction) Code(s): K56.609 - UNSP INTESTNL OBST, UNSP TO PARTIAL VERSUS COMPLETE OBST
[2020-07-01] MEDS: amLODIPine BESYLATE 5 MG TABLET (FP) PO SCH (10:32)
[2020-07-01] MEDS: HEPARIN NA (PORCINE) 5,000 UNITS/ML 1ML VIAL SQ SCH (10:32)
[2020-07-01] MEDS: FAMOTIDINE 20 MG/50 ML IVPB 20 MG/50 ML MG IVPB SCH (10:33)
[2020-07-01] MEDS ORDERED: BISACODYL 10 MG SUPP.RECT PR ONE (13:15)
[2020-07-01] MEDS: MINERAL OIL/PETROLAT/WATER TOPICAL CREAM 454 GM JAR TP SCH (13:20)
--- NOTE | 2020-07-01 13:22 | CONS ---
DATE OF CONSULTATION: 06/30/2020 REFERRING PROVIDER: LAVELLE Gallegos The patient is a 59-year-old female, past medical history of ovarian CA, status post resection, history of fibroidectomy 25 years ago, hypertension, hyperlipidemia, bilateral oophorectomy in 2003, admitted to [facility] on June 27 with complaint of progressive abdominal distention and uncomfortable postprandial sensation. Patient was admitted with the above. On admission, she underwent a CAT of the abdomen and pelvis, with evidence of small-bowel obstruction. On admission, she was subsequently evaluated by surgical consultation. Of note, on admission chest CT, she was noted to have a left lower lobe nodule. Patient is a nonsmoker. She denies any history of occupational exposure to chemicals or fumes. She was born in [facility] and moved to the [facility] 25 years ago. Past medical history, again, includes ovarian CA, status post bilateral oophorectomy at [place] in 2003, fibroidectomy, hypertension, hyperlipidemia. SOCIAL HISTORY: Nonsmoker. Born in [facility], moved to the [facility] many years ago. REVIEW OF SYSTEMS: No orthopnea, no PND, no chest pain, no palpitations. Positive abdominal pain, positive nausea. No fever, no chills. No hemoptysis. Current medications include Zofran, Tylenol, heparin, Eucerin, Dulcolax, Norvasc, famotidine, Lipitor, morphine. PHYSICAL EXAMINATION: General: The patient is a well-developed, well-nourished female, awake, alert, in no acute distress. Vital Signs: She is afebrile. Blood pressure 141/89. Respiratory rate 18. O2 saturation 95%. HEENT: Normocephalic, atraumatic. Neck: Supple. Heart: Regular, S1, S2. Chest: Clear. Abdomen: Soft. Mildly distended. Extremities: No cyanosis, edema. LABORATORY DATA: WBC 8.9, hemoglobin 14.6, hematocrit 43.8, with a platelet count 175,000. Chemistries: BUN 16, creatinine 0.7. COVID is not detected. IMPRESSION: 1. Small-bowel obstruction. 2. History of ovarian carcinoma, status post surgery in 2004. 3. History of fibroidectomy 25 years ago. 4. Left lower lobe nodule, rule out possible inflammatory, rule out possible malignant versus infectious. 5. Hypertension. 6. Hyperlipidemia. 7. Prediabetes. PLAN: CT scan of the chest, monitor electrolytes. Further workup as per Surgery. Further recommendations after the chest CT is performed and reviewed. SERJIO LORD M.D. [place]SEA/[id number]
[2020-07-01 15:03] VITALS: BP 129/79; PULSE 87; TEMP 98.9
--- NOTE | 2020-07-01 15:08 | DS ---
Physical Exam: SUBJECTIVE: Patient seen and examined at the bedside. denies any abdominal pain, denies nausea or vomiting. had BM today before discharge. Spoke to daughter Sasha and patient. Patient and daughter agree that they will follow up outpatient for the pulmonary nodule, t11 mass and umbilical hernia found on imaging. Patient given referrals to oncologist (Dr. Weinstein) for check up on past medical history of ovarian cancer. Patient will speak to her PCP regarding a PET scan to further evaluate pulmonary nodule. OBJECTIVE: Patient is a 59 years old female history of hypertension, hypercholesterolemia, ovarian cancer status post surgery 2004 at [place], Goiter, prediabetic. Patient presented to the ED on 06/27/2020 with abdominal pain and distention and was found to have an SBO. Small bowel obstruction medically managed with NPO, and nasogastric tube. Patient clinically improved and abdominal xray 06/29/2020 showed improvement. She tolerated her diet and will be discharged on full liquid diet or 1 week per surgery. Patient to follow up with Dr Wilburn in 1 week. Patient and daughter aware that the pulmonary nodule will need close follow up. Both agree that they will follow up. imaging: abdominal pelvis CT 06/27/2020: (1) left lower lung, incompletely included 9mm pulmonary nodule. (2) distal SBO (3) small umbilical hernia with herniating bowels, without evidence of incarceration. (4) s/p hysterectomy (5) right posterior soft tissue mass line densities with small calcifications seen on t11- t12 level. abdominal xray 06/29/2020: slight improvement from prior study Vital Signs Period Temp Pulse Resp BP Sys/Hdz Pulse Ox Last 24 Hr 98.0 F-98.9 F 76-87 16-18 128-141/56-89 95-100 PHYSICAL EXAM GENERAL: The patient is awake, alert, and fully oriented, in no acute distress. HEAD: Normal with no signs of trauma. EYES: PERRL, extraocular movements intact, sclera anicteric, conjunctiva clear. No ptosis. ENT: Ears normal, nares patent, oropharynx clear without exudates, moist mucous membranes. NECK: Trachea midline, full range of motion, supple. LUNGS: Breath sounds equal, clear to auscultation bilaterally, no wheezes HEART: Regular rate and rhythm ABDOMEN: Soft, non tender, + bowel sounds, non distended. NGT tube removed 06/29/2020. tolerating full liquid diet. EXTREMITIES: no edema. NEUROLOGICAL: Normal speech, gait not observed. PSYCH: Normal mood, normal affect. SKIN: dry LABS Laboratory Results - last 24 hr 07/01/20 07/01/20 08:05 08:05 WBC 7.2 RBC 5.35 H Hgb 14.8 Hct 43.5 MCV 81.4 MCH 27.6 MCHC 33.9 RDW 15.4 Plt Count 212 D MPV 10.2 Absolute Neuts (auto) 4.2 Neutrophils % 59.1 Lymphocytes % 33.4 D Monocytes % 5.8 Eosinophils % 1.1 Basophils % 0.6 Nucleated RBC % 0 Sodium 142 Potassium 4.2 Chloride 106 Carbon Dioxide 29 Anion Gap 7 L BUN 10.3 Creatinine 0.7 Est GFR (CKD-EPI)AfAm 111.47 Est GFR (CKD-EPI)NonAf 96.18 Random Glucose 102 Calcium 9.6 Magnesium 2.3 Total Bilirubin 1.0 AST 48 H ALT 44 Alkaline Phosphatase 77 Total Protein 7.3 Albumin 3.4 HOSPITAL COURSE: Date of Admission:06/27/20 Date of Discharge: 07/01/20 Minutes to complete discharge: 60 Discharge Summary Problems reviewed: Yes Reason For Visit: SMALL BOWEL OBSTRUCTION Current Active Problems DVT prophylaxis (Acute) HLD (hyperlipidemia) (Acute) Hypertension (Acute) Lactic acidosis (Acute) Ovarian cancer (Acute) Pulmonary nodule 1 cm or greater in diameter (Acute) SBO (small bowel obstruction) (Acute) Condition: Improved - Instructions Diet, Activity, Other Instructions: Ms Lindsey: You were admitted to [facility] on 06/27/2020 with a small bowel obstruction. Your abdominal xray shows IMPROVED resolution of the small bowel obstruction and you were started on a FULL LIQUID DIET and you have been tolerating it. During your stay, we did imaging of your abdomen and your chest and we have found the followin. Two pulmonary nodules. What is a pulmonary nodule? A pulmonary nodule is a small growth in the lungs that could be due to a prior infection. They are usually benign. It is important that you follow up and have a PET scan done. A PET scan is a scan that looks at the nodules closer and monitors them. I have referred you to an oncologist since you have a past history of ovarian cancer. It is important that you see them so that they can monitor you as an outpatient. 2. A small umbilical hernia. Please follow up with Dr Wilburn on your next follow up visit with him. 3. A soft mass lesion on T11-T12. Pleas follow up with your primary care doctor. Please bring the imaging with you. DIET: Continue a FULL liquids diet for 1 week Foods included in a full liquid diet include: Pureed soups, clear broth, jello, fruit juices, plan ice cream, butter, margarine, honey, stained cream soups. FOLLOW UP: Please follow up with Dr. Wilburn in 1 week Thank you for allow us to care for you. Referrals: Jessie Aparicio [Other Staff,non-medical] - Corinna Vasquez MD [Staff Physician] - Tejinder Antunez MD [Primary Care Provider] - Parveen Wilburn MD [Staff Physician] - Disposition: HOME - Home Medications Comprehensive Discharge Medication List: Ambulatory Orders Amlodipine-Atorvast 5-10 mg 5 mg PO DAILY 06/27/20 Atorvastatin Ca [Lipitor] 1 tab 06/27/20 Sennosides [Mariah-Siobhan] 8.6 mg PO DAILY 06/27/20 Mineral Oil/Petrolat,Wht/Water [Eucerin (Large Jar) -] 1 applic TP BID jar 07/01/20 Problem List - Problems (1) SBO (small bowel obstruction) Assessment/Plan: per abdominal xray dated 06/29/2020. improvement of SBO. NGT removed 06/29/2020 and now on full liquid diet. abdomen soft and non distended. patient had BM today Code(s): K56.609 - UNSP INTESTNL OBST, UNSP TO PARTIAL VERSUS COMPLETE OBST (2) Lactic acidosis Assessment/Plan: now resolved. Code(s): E87.2 - ACIDOSIS (3) Pulmonary nodule 1 cm or greater in diameter Assessment/Plan: pulmonary nodule seen on abd/ct scan, incidental finding. per report, left lower lung, incompletely included 9mm pulmonary nodule. Chest CT results noted, pulmonary nodules likely benign. Patient to follow up for PET scan as an outpatient. Code(s): R91.1 - SOLITARY PULMONARY NODULE (4) Hypertension Assessment/Plan: stable on amlodopine 5mg Code(s): I10 - ESSENTIAL (PRIMARY) HYPERTENSION (5) Ovarian cancer Assessment/Plan: patient does not have a oncologist. She has been referred to Dr. Weinstein. Code(s): C56.9 - MALIGNANT NEOPLASM OF UNSPECIFIED OVARY (6) DVT prophylaxis Code(s): Z29.9 - ENCOUNTER FOR PROPHYLACTIC MEASURES, UNSPECIFIED This patient is new to me today: No Emergency Visit: Yes ED Registration Date: 06/27/20 Care time: The patient presented to the Emergency Department on the above date and was hospitalized for further evaluation of their emergent condition. Critical Care patient: No - Discharge Referral Referred to [facility] Med [facility] No
== END 2020-07-01 15:48 | disposition home or self-care (01) | DRG 247 ==
LOC: JER 01:24 → JERBED 04:35 → J5S 06:40
PROVIDERS: ADMIT Internal Medicine; ATTEND Nurse Practitioner Family
PROC: 0D9670Z Drainage of Stomach with Drainage Device, Via Natural or Artificial Opening (ICD-10-PCS; principal; 2020-06-27)
DX: K56.50 Intestinal adhesions [bands], unspecified as to partial versus complete obstruction (principal); E87.2 Acidosis; R14.0 Abdominal distension (gaseous); R11.2 Nausea with vomiting, unspecified; K42.9 Umbilical hernia without obstruction or gangrene; R91.1 Solitary pulmonary nodule; I10 Essential (primary) hypertension; E78.5 Hyperlipidemia, unspecified; R73.03 Prediabetes; R10.31 Right lower quadrant pain; Z90.722 Acquired absence of ovaries, bilateral; Z85.43 Personal history of malignant neoplasm of ovary
CPT/HCPCS: 36415; 71045-TC-FY; 71250-TC; 74018-TC-FY; 74019-TC-FY; 74177-TC; 80048; 80053; 81003; 82962; 83036; 83605; 83690; 83735; 84100; 85025; 85027; 85610; 86850; 86900; 86901; 87040; 87077; 87086; 93005; 93010; 97116-GP; 97161-GP; 99285-25; J0131; J1644; Q9967; U0003

== ENCOUNTER 2020-12-16 04:58 | Day surgery (SDC) | payer OTHER ==
[2020-12-09 08:17] VITALS: BMI 26.4
[2020-12-16 09:58] VITALS: TEMP 97.7
[2020-12-16 10:30] VITALS: PULSE 73
[2020-12-16 11:27] VITALS: BP 130/80
== END 2020-12-16 11:20 | disposition home or self-care (01) ==
LOC: JASU-ENDO 04:58
PROVIDERS: ATTEND Internal Medicine Gastroenterology
PROC: 0DJD8ZZ Inspection of Lower Intestinal Tract, Via Natural or Artificial Opening Endoscopic (ICD-10-PCS; 2020-12-16)
PROC: 0DB68ZX Excision of Stomach, Via Natural or Artificial Opening Endoscopic, Diagnostic (ICD-10-PCS; principal; 2020-12-16 09:00)
DX: Z12.11 Encounter for screening for malignant neoplasm of colon (principal); K29.50 Unspecified chronic gastritis without bleeding; I10 Essential (primary) hypertension; E11.9 Type 2 diabetes mellitus without complications; Z85.43 Personal history of malignant neoplasm of ovary; Z79.84 Long term (current) use of oral hypoglycemic drugs
CPT/HCPCS: 43239; G0105; 82962; 88305-TC; 88342-TC

== ENCOUNTER 2022-01-03 23:11 | Inpatient (IN) | payer OTHER ==
[2022-01-03] MEDS ORDERED: morphine CARPU-JECT 4 MG/1 ML DISP.SYRIN IVPUSH ONE (23:54)
[2022-01-03] MEDS ORDERED: LACTATED RINGERS SOLUTION 1000 ML INFUS.BAG IV ONE (23:54)
[2022-01-04 00:32] LABS: BASO % 0.4 % (0-2.0); EOS % 0.4 % (0-4.5); HEMATOCRIT 42.8 % (32.4-45.2); HEMOGLOBIN 14.7 GM/dL (10.7-15.3); MCHC 34.2 g/dl (32.0-36.0); MEAN CELL VOLUME 78.9 fl (80-96); MEAN PLT VOLUME 9.7 fl (7.5-11.1); MONO % 4.7 % (3.8-10.2); NEUT % 78.5 % (42.8-82.8); PLATELET COUNT 198 10^3/uL (134-434); RBC 5.43 M/mm3 (3.60-5.2); RDW 16.2 % (11.6-15.6); WHITE BLOOD COUNT 11.6 K/mm3 (4.0-10.0)
[2022-01-04 00:46] LABS: INR 1.06 (0.83-1.09); PROTHROMBIN TIME (PATIENT) 12.2 SEC (9.7-13.0)
[2022-01-04 00:48] LABS: ACTIVATED PTT 31.9 SECONDS (25.2-36.5)
[2022-01-04 00:56] LABS: ALBUMIN 3.9 g/dl (3.4-5.0); BLOOD UREA NITROGEN 9.2 mg/dL (7-18); CALCIUM 9.2 mg/dL (8.5-10.1)
[2022-01-04 00:59] LABS: CREATININE 0.7 mg/dL (0.55-1.3); LACTIC ACID 2.1 mmol/L (0.4-2.0)
[2022-01-04 01:01] LABS: TOT PROT 7.4 g/dl (6.4-8.2)
[2022-01-04] MEDS ORDERED: morphine CARPU-JECT 4 MG/1 ML DISP.SYRIN IVPUSH PRN (03:12)
[2022-01-04] MEDS ORDERED: LORazepam 2 MG/ML SDV VIAL IVPUSH ONE (04:00)
[2022-01-04 04:35] LABS: LACTIC ACID 2.6 mmol/L (0.4-2.0)
[2022-01-04] MEDS: LACTATED RINGERS SOLUTION 1,000 ML/1,000 ML INFUS.BAG IV SCH (05:19)
[2022-01-04 05:38] VITALS: BMI 24.0
[2022-01-04] MEDS: INSULIN SLIDING SCALE (NOVOLOG) 1 VIAL SQ SCH ×4 (06:43→21:36)
[2022-01-04 09:21] LABS: BASO % 0.3 % (0-2.0); EOS % 0.5 % (0-4.5); HEMATOCRIT 41.6 % (32.4-45.2); LYMPH % 19.6 % (8-40); MCH 26.8 pg (25.7-33.7); MCHC 33.6 g/dl (32.0-36.0); MEAN CELL VOLUME 79.7 fl (80-96); MEAN PLT VOLUME 9.5 fl (7.5-11.1); MONO % 4.7 % (3.8-10.2); NEUT % 74.9 % (42.8-82.8); PLATELET COUNT 197 10^3/uL (134-434); RBC 5.22 M/mm3 (3.60-5.2); RDW 16.4 % (11.6-15.6); WHITE BLOOD COUNT 8.8 K/mm3 (4.0-10.0)
[2022-01-04] MEDS: ENOXAPARIN NA (PORCINE) 40 MG/0.4 ML DISP.SYRIN SQ SCH (09:34)
[2022-01-04 10:12] LABS: ALBUMIN 3.3 g/dl (3.4-5.0); BLOOD UREA NITROGEN 7.2 mg/dL (7-18); MAGNESIUM 2.2 mg/dL (1.8-2.4)
[2022-01-04 10:15] LABS: CREATININE 0.7 mg/dL (0.55-1.3); PHOSPHOROUS 3.4 mg/dL (2.5-4.9)
[2022-01-04] MEDS ORDERED: ACETAMINOPHEN 1000 MG/100 ML BAG IVPB PRN (10:15)
[2022-01-04 10:16] LABS: BILIRUBIN,TOTAL 1.2 mg/dL (0.2-1); TOT PROT 6.4 g/dl (6.4-8.2)
[2022-01-05] MEDS: LACTATED RINGERS SOLUTION 1,000 ML/1,000 ML INFUS.BAG IV SCH ×2 (02:24→10:42)
[2022-01-05 02:59] LABS: EPI CELLS 23 /uL (0-25.1); HYALINE CASTS 2 /uL (0-3.1); URINE APPEARANCE CLOUDY; URINE BACTERIA 620 /uL (0-1359); URINE BILIRUBIN NEGATIVE (NEGATIVE); URINE COLOR YELLOW; URINE GLUCOSE (UA) NEGATIVE (NEGATIVE); URINE KETONE NEGATIVE (NEGATIVE); URINE LEUK ESTERASE 2+ (NEGATIVE); URINE NITRITE NEGATIVE (NEGATIVE); URINE PROTEIN NEGATIVE (NEGATIVE); URINE RBC 13 /uL (0-23.9); URINE UROBILINOGEN 0.2 mg/dL (0.2-1.0); URINE WBC 163 /uL (0-25.8)
[2022-01-05] MEDS: INSULIN SLIDING SCALE (NOVOLOG) 1 VIAL SQ SCH ×4 (06:06→21:54)
[2022-01-05 09:04] LABS: BASO % 0.3 % (0-2.0); EOS % 1.7 % (0-4.5); HEMATOCRIT 40.4 % (32.4-45.2); HEMOGLOBIN 13.6 GM/dL (10.7-15.3); LYMPH % 22.8 % (8-40); MCH 26.7 pg (25.7-33.7); MCHC 33.6 g/dl (32.0-36.0); MEAN CELL VOLUME 79.5 fl (80-96); MEAN PLT VOLUME 9.4 fl (7.5-11.1); MONO % 7.3 % (3.8-10.2); NEUT % 67.9 % (42.8-82.8); PLATELET COUNT 184 10^3/uL (134-434); RBC 5.08 M/mm3 (3.60-5.2); RDW 16.5 % (11.6-15.6); WHITE BLOOD COUNT 6.8 K/mm3 (4.0-10.0)
[2022-01-05 10:07] LABS: CALCIUM 8.5 mg/dL (8.5-10.1)
[2022-01-05 10:08] LABS: ALBUMIN 3.2 g/dl (3.4-5.0); BLOOD UREA NITROGEN 6.8 mg/dL (7-18)
[2022-01-05 10:11] LABS: CREATININE 0.6 mg/dL (0.55-1.3)
[2022-01-05 10:12] LABS: BILIRUBIN,TOTAL 1.7 mg/dL (0.2-1)
[2022-01-05] MEDS ORDERED: DEXTROSE 5%-WATER - 50 ML IVPB ONE (10:43)
[2022-01-05] MEDS ORDERED: cefTRIAXone SODIUM 1 GM VIAL ONE (10:43)
[2022-01-05] MEDS: ENOXAPARIN NA (PORCINE) 40 MG/0.4 ML DISP.SYRIN SQ SCH (10:46)
[2022-01-05] MEDS: CEFTRIAXONE 1 GM in DEXTROSE 5%-WATER - 50 ML IVPB SCH (10:46)
[2022-01-05] MEDS ORDERED: PHENOL 177 ML SPRAY BOTTLE MM PRN (16:29)
[2022-01-05] MEDS ORDERED: BENZOCAINE/MENTH/CETYLPYRD CL 1 EACH LOZENGE MM PRN (16:41)
[2022-01-05] MEDS ORDERED: INSULIN (NOVOLOG) ASPART 100 UNITS/ML 10ML VIAL ONE (20:45)
[2022-01-05] MEDS ORDERED: ACETAMINOPHEN 1000 MG/100 ML BAG IVPB ONE (23:08)
[2022-01-05] MEDS ORDERED: LORazepam 2 MG/ML SDV VIAL IVPUSH ONE (23:09)
[2022-01-06] MEDS: LACTATED RINGERS SOLUTION 1,000 ML/1,000 ML INFUS.BAG IV SCH ×2 (00:27→06:34)
[2022-01-06] MEDS: INSULIN SLIDING SCALE (NOVOLOG) 1 VIAL SQ SCH ×4 (06:35→22:44)
[2022-01-06] MEDS ORDERED: cefTRIAXone SODIUM 1 GM VIAL ONE (10:28)
[2022-01-06] MEDS ORDERED: DEXTROSE 5%-WATER - 50 ML IVPB ONE (10:29)
[2022-01-06] MEDS: ENOXAPARIN NA (PORCINE) 40 MG/0.4 ML DISP.SYRIN SQ SCH (10:34)
[2022-01-06] MEDS: CEFTRIAXONE 1 GM in DEXTROSE 5%-WATER - 50 ML IVPB SCH (10:34)
[2022-01-06 11:00] LABS: BASO % 0.5 % (0-2.0); EOS % 0.7 % (0-4.5); HEMATOCRIT 42.7 % (32.4-45.2); HEMOGLOBIN 14.4 GM/dL (10.7-15.3); LYMPH % 26.8 % (8-40); MCH 26.7 pg (25.7-33.7); MCHC 33.8 g/dl (32.0-36.0); MEAN CELL VOLUME 79.1 fl (80-96); MEAN PLT VOLUME 9.1 fl (7.5-11.1); MONO % 6.4 % (3.8-10.2); NEUT % 65.6 % (42.8-82.8); PLATELET COUNT 202 10^3/uL (134-434); RBC 5.39 M/mm3 (3.60-5.2); RDW 16.2 % (11.6-15.6); WHITE BLOOD COUNT 7.9 K/mm3 (4.0-10.0)
[2022-01-06 11:18] LABS: CALCIUM 9.3 mg/dL (8.5-10.1)
[2022-01-06 11:19] LABS: ALBUMIN 3.5 g/dl (3.4-5.0); BLOOD UREA NITROGEN 10.3 mg/dL (7-18); MAGNESIUM 2.2 mg/dL (1.8-2.4)
[2022-01-06 11:21] LABS: CREATININE 0.6 mg/dL (0.55-1.3)
[2022-01-06 11:22] LABS: TOT PROT 6.9 g/dl (6.4-8.2)
[2022-01-06 11:23] LABS: BILIRUBIN,TOTAL 1.6 mg/dL (0.2-1)
[2022-01-07] MEDS: LACTATED RINGERS SOLUTION 1,000 ML/1,000 ML INFUS.BAG IV SCH ×2 (02:08→06:27)
[2022-01-07] MEDS: INSULIN SLIDING SCALE (NOVOLOG) 1 VIAL SQ SCH ×2 (06:27→12:13)
[2022-01-07 07:55] VITALS: BP 108/75; PULSE 82; TEMP 98.7
[2022-01-07] MEDS ORDERED: cefTRIAXone SODIUM 1 GM VIAL ONE (09:29)
[2022-01-07] MEDS ORDERED: DEXTROSE 5%-WATER - 50 ML IVPB ONE (09:29)
[2022-01-07] MEDS: ENOXAPARIN NA (PORCINE) 40 MG/0.4 ML DISP.SYRIN SQ SCH (09:34)
[2022-01-07] MEDS: CEFTRIAXONE 1 GM in DEXTROSE 5%-WATER - 50 ML IVPB SCH (09:34)
[2022-01-07 09:59] LABS: BASO % 0.4 % (0-2.0); EOS % 1.5 % (0-4.5); HEMATOCRIT 41.3 % (32.4-45.2); HEMOGLOBIN 13.7 GM/dL (10.7-15.3); LYMPH % 31.8 % (8-40); MCH 26.6 pg (25.7-33.7); MEAN CELL VOLUME 80.5 fl (80-96); MEAN PLT VOLUME 9.2 fl (7.5-11.1); NEUT % 58.3 % (42.8-82.8); PLATELET COUNT 198 10^3/uL (134-434); RBC 5.13 M/mm3 (3.60-5.2); RDW 16.5 % (11.6-15.6); WHITE BLOOD COUNT 4.9 K/mm3 (4.0-10.0)
[2022-01-07] MEDS ORDERED: amLODIPine BESYLATE 5 MG TABLET (FP) PO SCH (10:00)
[2022-01-07 10:39] LABS: CALCIUM 9.2 mg/dL (8.5-10.1)
[2022-01-07 10:40] LABS: MAGNESIUM 2.1 mg/dL (1.8-2.4)
[2022-01-07 10:42] LABS: ALBUMIN 3.3 g/dl (3.4-5.0); CREATININE 0.6 mg/dL (0.55-1.3)
[2022-01-07 10:44] LABS: BILIRUBIN,TOTAL 1.4 mg/dL (0.2-1)
[2022-01-07 10:47] LABS: TOT PROT 6.3 g/dl (6.4-8.2)
[2022-01-07] MEDS ORDERED: ATORVASTATIN CA 10 MG TABLET (FP) PO SCH (22:00)
== END 2022-01-07 15:10 | disposition home or self-care (01) | DRG 247 ==
LOC: JER 23:11 → JERBED 01-04 03:06 → J8W 01-04 04:50
PROVIDERS: ADMIT Hospitalist; ATTEND Nurse Practitioner Acute Care
PROC: 0D9670Z Drainage of Stomach with Drainage Device, Via Natural or Artificial Opening (ICD-10-PCS; principal; 2022-01-03)
DX: K56.609 Unspecified intestinal obstruction, unspecified as to partial versus complete obstruction (principal); I10 Essential (primary) hypertension; E78.5 Hyperlipidemia, unspecified; E11.9 Type 2 diabetes mellitus without complications; R00.0 Tachycardia, unspecified; Z85.43 Personal history of malignant neoplasm of ovary
CPT/HCPCS: 36415; 71045-TC-FY; 74019-TC-FY; 74177-TC; 74190-TC-FY; 80053; 81003; 82550; 82553; 82962; 83036; 83605; 83735; 84100; 84484; 85025; 85610; 85730; 86850; 86900; 86901; 87040; 87086; 93005; 93010; 99285-25; C9803; Q9967; U0003; U0005

== ENCOUNTER 2024-04-24 22:16 | Emergency (ER) | payer OTHER ==
[2024-04-24 22:22] VITALS: BP 187/77; PULSE 81; RESP 20; TEMP 97.9; BMI 25.7
[2024-04-24] MEDS ORDERED: DIPHTH,PERTUSS(ACELL),TET 0.5 ML DISP.SYRIN IM ONE (22:52)
[2024-04-24] MEDS: DIPHTH,PERTUSS(ACELL),TET 0.5 ML DISP.SYRIN IM ONE (22:54)
== END 2024-04-24 23:24 | disposition home or self-care (01) ==
LOC: JER 22:16
PROC: 0HQ1XZZ Repair Face Skin, External Approach (ICD-10-PCS; principal; 2024-04-24)
PROC: 3E0234Z Introduction of Serum, Toxoid and Vaccine into Muscle, Percutaneous Approach (ICD-10-PCS; 2024-04-24)
DX: S01.112A Laceration without foreign body of left eyelid and periocular area, initial encounter (principal); W22.01XA Walked into wall, initial encounter; Y93.01 Activity, walking, marching and hiking; Z23 Encounter for immunization
CPT/HCPCS: 12011-25; 90471; 90715; 99282-25

== ENCOUNTER 2024-05-02 11:20 | Emergency (ER) | payer OTHER ==
[2024-05-02 11:27] VITALS: BP 140/75; PULSE 82; RESP 18; TEMP 97.7; BMI 25.7
== END 2024-05-02 11:57 | disposition home or self-care (01) ==
LOC: JERFT 11:20
DX: Z48.02 Encounter for removal of sutures (principal)
CPT/HCPCS: 99281-25